=== PATIENT | female | born 1985 | race Two or more races ===

== ENCOUNTER → 2016-12-23 | Outpatient (CLI) | payer BC ==
[2016-12-23 09:47] LABS: Basophils # (auto) 0 uL; Basophils % (auto) 0.7 % (0.0-2.0); Eosinophils # (auto) 0 uL; Eosinophils % (auto) 0.8 % (0.0-7.0); Hematocrit 41.8 % (36.0-46.0); Hemoglobin 13.8 g/dL (12.2-16.2); Lymphocytes # (auto) 1.6 uL; Lymphocytes % (auto) 26.3 % (10.0-50.0); Mean Corpuscular Hemoglobin 29.5 pg (28.0-32.0); Mean Corpuscular Hgb Conc. 33.1 g/dL (32.0-36.0); Mean Corpuscular Volume 89.2 fL (80.0-100.0); Mean Platelet Volume 9.4 fL (7.4-10.4); Monocytes # (auto) 0.4 uL; Monocytes % (auto) 6.5 % (0.0-12.0); Neutrophils # (auto) 3.9 uL; Neutrophils % (auto) 65.7 % (37.0-80.0); Platelet Count (auto) 283 10^3/uL (140-450)
[2016-12-23 10:20] LABS: Urine Bilirubin Negative (Negative); Urine Blood Negative /uL (Negative); Urine Color Yellow (Yellow); Urine Glucose Normal (Normal); Urine Ketone Negative (Negative); Urine Nitrite Negative (Negative); Urine RBC 1 /hpf (0 - 4); Urine Squamous Epithelial Cell FEW /hpf (<5); Urine Urobilinogen Normal (Negative)
[2016-12-23 10:32] LABS: Albumin 3.9 g/dL (3.4-5.0); BUN/Creatinine Ratio 13.3; Bilirubin, Total 0.6 mg/dL (0.2-1.0); Calcium 8.9 mg/dL (8.5-10.1); Potassium 3.8 mmol/L (3.5-5.1); Total Protein 8.2 g/dL (6.4-8.2)
== END | disposition home or self-care (01) ==
LOC: LAB 08:27
PROVIDERS: ATTEND Internal Medicine
DX: I10 Essential (primary) hypertension (principal); Z00.00 Encounter for general adult medical examination without abnormal findings
CPT/HCPCS: 36415; 80053; 81001; 81025; 83036; 85025

== ENCOUNTER 2017-07-19 11:56 | Inpatient (IN) | payer BC ==
[~2017-07-19] VITALS: Ht 160 cm; Wt 80.9 kg
[2017-07-19] MEDS ORDERED: HYDROmorphone HCL 2 MG/ML VL IV ONE (12:45)
[2017-07-19] MEDS ORDERED: ONDANSETRON HCL 4 MG/2 ML VIAL IV ONE (12:45)
[2017-07-19] MEDS ORDERED: SODIUM CHLORIDE 0.9% 1,000 ML IVB ONE (12:45)
[2017-07-19] MEDS ORDERED: PANTOPRAZOLE 40 MG/10 ML VIAL IV STA (12:45)
[2017-07-19 13:16] LABS: Basophils # (auto) 0.1 uL; Basophils % (auto) 0.6 % (0.0-2.0); Eosinophils # (auto) 0 uL; Eosinophils % (auto) 0.5 % (0.0-7.0); Hematocrit 41.7 % (36.0-46.0); Lymphocytes # (auto) 1.6 uL; Lymphocytes % (auto) 19.2 % (10.0-50.0); Mean Corpuscular Hemoglobin 29.3 pg (28.0-32.0); Mean Corpuscular Hgb Conc. 33.5 g/dL (32.0-36.0); Mean Corpuscular Volume 87.6 fL (80.0-100.0); Mean Platelet Volume 8.4 fL (6.9-10.8); Monocytes # (auto) 0.6 uL; Monocytes % (auto) 6.6 % (0.0-12.0); Neutrophils # (auto) 6.2 uL; Neutrophils % (auto) 73.1 % (37.0-80.0); Nucleated Red Blood Cells % 0.2 %; Platelet Count (auto) 247 10^3/uL (140-450); Red Cell Distribution Width 14.6 % (11.8-14.3); White Blood Cell 8.5 10^3/uL (4.4-10.8)
[2017-07-19 13:25] LABS: Albumin 3.9 g/dL (3.4-5.0); BUN/Creatinine Ratio 15.4; Calcium 9.2 mg/dL (8.5-10.1); Potassium 3.5 mmol/L (3.5-5.1)
[2017-07-19 13:28] LABS: Bilirubin, Total 0.5 mg/dL (0.2-1.0); Total Protein 8.3 g/dL (6.4-8.2)
[2017-07-19] MEDS ORDERED: TEMAZEPAM 15 MG CAP PO PRN (15:15)
[2017-07-19] MEDS ORDERED: DOCUSATE SOD 100 MG CAP PO PRN (15:15)
[2017-07-19] MEDS ORDERED: ACETAMINOPHEN 325 MG TAB PO PRN (15:15)
[2017-07-19 15:30] LABS: INR 0.98 (0.9-1.15); Prothrombin Time 10.7 sec (9.37-12.3)
[2017-07-19] MEDS ORDERED: cefTRIAXone 1GM/50ML D5W 50 ML IV ONE (15:30)
[2017-07-19] MEDS: FAMOTIDINE 20 MG TAB PO SCH ×2 (15:41→21:05)
[2017-07-19] MEDS: SODIUM CHLORIDE 0.9% 1,000 ML IV SCH ×2 (15:41→23:43)
[2017-07-19] MEDS ORDERED: metroNIDAZOLE 500MG/100ML 100 ML IV ONE (16:00)
[2017-07-19] MEDS: KETOROLAC TROMETH 30 MG/ML 1ML VIAL IV PRN (19:17)
[2017-07-19] MEDS: ONDANSETRON HCL 4 MG/2 ML VIAL IV PRN (21:05)
[2017-07-19] MEDS: ASCORBIC ACID 500 MG TAB PO SCH (21:05)
[2017-07-19] MEDS: HYDROcodone-ACET 5/325MG TAB PO PRN (21:06)
[2017-07-19 22:00] VITALS: BP 97/50
[2017-07-19] MEDS: metroNIDAZOLE 500MG/100ML 100 ML IV SCH (23:47)
[2017-07-20 05:00] VITALS: BP 94/63
[2017-07-20] MEDS: ONDANSETRON HCL 4 MG/2 ML VIAL IV PRN ×2 (05:17→18:09)
[2017-07-20 05:29] LABS: Urine Bilirubin Negative (Negative); Urine Blood Negative /uL (Negative); Urine Color Yellow (Yellow); Urine Glucose Normal (Normal); Urine Ketone 3+ (Negative); Urine Mucus FEW (None Seen); Urine Nitrite Negative (Negative); Urine RBC <1 /hpf (0 - 4); Urine Squamous Epithelial Cell FEW /hpf (<5); Urine Urobilinogen Normal (Negative)
[2017-07-20] MEDS: KETOROLAC TROMETH 30 MG/ML 1ML VIAL IV PRN ×3 (05:58→19:02)
[2017-07-20 06:08] LABS: Basophils # (auto) 0.1 uL; Basophils % (auto) 0.9 % (0.0-2.0); Eosinophils # (auto) 0.1 uL; Eosinophils % (auto) 1.3 % (0.0-7.0); Hematocrit 36.6 % (36.0-46.0); Hemoglobin 12.2 g/dL (12.2-16.2); Lymphocytes # (auto) 2.1 uL; Lymphocytes % (auto) 35.7 % (10.0-50.0); Mean Corpuscular Hemoglobin 29.8 pg (28.0-32.0); Mean Corpuscular Hgb Conc. 33.4 g/dL (32.0-36.0); Mean Corpuscular Volume 89.2 fL (80.0-100.0); Monocytes # (auto) 0.6 uL; Monocytes % (auto) 9.8 % (0.0-12.0); Neutrophils % (auto) 52.3 % (37.0-80.0); Nucleated Red Blood Cells % 0.1 %; Platelet Count (auto) 198 10^3/uL (140-450); Red Cell Distribution Width 14.4 % (11.8-14.3); White Blood Cell 5.8 10^3/uL (4.4-10.8)
[2017-07-20 06:29] LABS: Albumin 2.8 g/dL (3.4-5.0); Calcium 7.8 mg/dL (8.5-10.1); Potassium 3.8 mmol/L (3.5-5.1)
[2017-07-20 06:31] LABS: BUN/Creatinine Ratio 17.3; Bilirubin, Total 0.5 mg/dL (0.2-1.0); Total Protein 6.1 g/dL (6.4-8.2)
[2017-07-20 07:59] VITALS: BP 97/50
[2017-07-20] MEDS: SODIUM CHLORIDE 0.9% 1,000 ML IV SCH ×2 (08:32→15:57)
[2017-07-20] MEDS: metroNIDAZOLE 500MG/100ML 100 ML IV SCH ×3 (08:32→23:30)
[2017-07-20] MEDS ORDERED: PROPOFOL 10 MG/ML 20 ML IV ONE (09:34)
[2017-07-20] MEDS ORDERED: KETOROLAC TROMETH 60MG/2ML VIAL IM ONE (09:34)
[2017-07-20] MEDS ORDERED: MEPERIDINE HCL (50 MG/ML) 1 ML VIAL ONE (09:34)
[2017-07-20] MEDS ORDERED: MIDAZOLAM HCL 1MG/1ML-2 ML VIAL ONE (09:34)
[2017-07-20] MEDS ORDERED: GLYCOPYRROLATE 0.2 MG/ML 1ML VIAL ONE (09:34)
[2017-07-20] MEDS ORDERED: NEOSTIGMINE 1 MG/ML INJ (10mg/10ML VIAL) ONE (09:34)
[2017-07-20] MEDS ORDERED: ONDANSETRON HCL 4 MG/2 ML VIAL ONE (09:34)
[2017-07-20] MEDS ORDERED: fentaNYL CITRATE 100 MCG/2 ML VL ONE (09:34)
[2017-07-20] MEDS ORDERED: ROCURONIUM 10MG/ML 10ML VIAL IV ONE (09:34)
[2017-07-20] MEDS: ZINC SULFATE 220 MG CAP PO SCH (09:55)
[2017-07-20] MEDS: cefTRIAXone 1GM/50ML D5W 50 ML IV SCH (09:55)
[2017-07-20] MEDS: FAMOTIDINE 20 MG TAB PO SCH ×2 (09:56→21:30)
[2017-07-20] MEDS: ASCORBIC ACID 500 MG TAB PO SCH ×2 (09:56→21:29)
[2017-07-20] MEDS: MULTIPLE VITAMIN TAB PO SCH (09:56)
[2017-07-20] MEDS ORDERED: METOCLOPRAMIDE HCL 5MG/ml INJ 2ml VIAL IV ONE (10:15)
[2017-07-20] MEDS: HYDROmorphone HCL 2 MG/ML VL IV PRN ×4 (11:40→12:10)
[2017-07-20 15:39] LABS: Calcium 7.9 mg/dL (8.5-10.1); Potassium 3.9 mmol/L (3.5-5.1)
[2017-07-20] MEDS: HYDROcodone-ACET 5/325MG TAB PO PRN ×2 (15:57→20:12)
[2017-07-20 17:04] VITALS: BP 101/53
[2017-07-20 20:00] VITALS: BP 103/48
[2017-07-20] MEDS ORDERED: MEPERIDINE HCL (25 MG/ML) 1ML VIAL IV ONE (20:45)
[2017-07-20 22:00] VITALS: BP 103/48
[2017-07-21] MEDS: HYDROcodone-ACET 5/325MG TAB PO PRN ×5 (00:24→21:52)
[2017-07-21] MEDS: SODIUM CHLORIDE 0.9% 1,000 ML IV SCH ×4 (00:29→21:57)
[2017-07-21] MEDS: KETOROLAC TROMETH 30 MG/ML 1ML VIAL IV PRN (02:10)
[2017-07-21 05:00] VITALS: BP 96/50
[2017-07-21 06:30] LABS: Basophils # (auto) 0 uL; Basophils % (auto) 0.7 % (0.0-2.0); Eosinophils # (auto) 0 uL; Eosinophils % (auto) 0.5 % (0.0-7.0); Hematocrit 28.8 % (36.0-46.0); Hemoglobin 9.9 g/dL (12.2-16.2); Lymphocytes # (auto) 1.5 uL; Lymphocytes % (auto) 22.5 % (10.0-50.0); Mean Corpuscular Hemoglobin 30.5 pg (28.0-32.0); Mean Corpuscular Hgb Conc. 34.3 g/dL (32.0-36.0); Mean Corpuscular Volume 88.9 fL (80.0-100.0); Mean Platelet Volume 8.9 fL (6.9-10.8); Monocytes # (auto) 0.6 uL; Monocytes % (auto) 8.6 % (0.0-12.0); Neutrophils # (auto) 4.6 uL; Neutrophils % (auto) 67.7 % (37.0-80.0); Nucleated Red Blood Cells % 0.1 %; Platelet Count (auto) 174 10^3/uL (140-450); White Blood Cell 6.7 10^3/uL (4.4-10.8)
[2017-07-21] MEDS: ONDANSETRON HCL 4 MG/2 ML VIAL IV PRN ×2 (08:20→21:57)
[2017-07-21] MEDS: metroNIDAZOLE 500MG/100ML 100 ML IV SCH (08:25)
[2017-07-21 08:47] VITALS: BP 101/54
[2017-07-21] MEDS: cefTRIAXone 1GM/50ML D5W 50 ML IV SCH (10:16)
[2017-07-21] MEDS: MULTIPLE VITAMIN TAB PO SCH (10:17)
[2017-07-21] MEDS: ZINC SULFATE 220 MG CAP PO SCH (10:17)
[2017-07-21] MEDS: FAMOTIDINE 20 MG TAB PO SCH ×2 (10:17→21:53)
[2017-07-21] MEDS: ASCORBIC ACID 500 MG TAB PO SCH ×2 (10:17→21:52)
[2017-07-21 13:22] VITALS: BP 111/62
[2017-07-21 17:22] VITALS: BP 107/55
[2017-07-21 22:00] VITALS: BP 110/53
[2017-07-22] MEDS: HYDROcodone-ACET 5/325MG TAB PO PRN ×3 (04:23→19:34)
[2017-07-22 05:00] VITALS: BP 111/60
[2017-07-22 06:15] LABS: Hematocrit 31.1 % (36.0-46.0); Hemoglobin 10.6 g/dL (12.2-16.2)
[2017-07-22 08:00] VITALS: BP 108/65
[2017-07-22 09:00] VITALS: BP 108/65
[2017-07-22] MEDS ORDERED: DOCU100C8 PO (09:56)
[2017-07-22] MEDS: MULTIPLE VITAMIN TAB PO SCH (10:00)
[2017-07-22] MEDS: FAMOTIDINE 20 MG TAB PO SCH (10:46)
[2017-07-22] MEDS: ASCORBIC ACID 500 MG TAB PO SCH (10:46)
[2017-07-22] MEDS: ZINC SULFATE 220 MG CAP PO SCH (10:46)
[2017-07-22 13:00] VITALS: BP 96/51
[2017-07-22] MEDS ORDERED: HYDR-4683 PO (14:16)
[2017-07-22] MEDS ORDERED: ONDA4TAB5 PO (14:16)
[2017-07-22 17:00] VITALS: BP 105/62
[2017-07-22 18:04] VITALS: BP 105/62
== END 2017-07-22 19:45 | disposition home or self-care (01) | DRG 872 ==
LOC: ER 11:56 → OVERFLOW 11:57 → EAST 19:45
PROVIDERS: ADMIT Internal Medicine; ATTEND Internal Medicine
DX: A41.9 Sepsis, unspecified organism (principal); K80.00 Calculus of gallbladder with acute cholecystitis without obstruction; K76.0 Fatty (change of) liver, not elsewhere classified; D64.9 Anemia, unspecified; K27.9 Peptic ulcer, site unspecified, unspecified as acute or chronic, without hemorrhage or perforation; Z91.040 Latex allergy status
CPT/HCPCS: 36415; 80048; 80053; 81001; 81025; 82150; 82247; 83605; 83690; 84702; 85014; 85018; 85025; 85610; 86850; 86900; 86901; 87040; 96361; 96365; 96368; 96375; C9113; J0696; J1885; J2250; J2405; J2704; J3490

== ENCOUNTER → 2017-07-28 | Outpatient (CLI) | payer BC ==
[~2017-07-28] MED LIST: DOCU100C8 PO; GABA300C10 PO; HYDR-4683 PO; ONDA4TAB5 PO
[2017-07-28 08:49] LABS: Basophils # (auto) 0.1 uL; Eosinophils # (auto) 0.1 uL; Eosinophils % (auto) 0.7 % (0.0-7.0); Hematocrit 37.3 % (36.0-46.0); Hemoglobin 12.7 g/dL (12.2-16.2); Lymphocytes # (auto) 1.3 uL; Lymphocytes % (auto) 16.2 % (10.0-50.0); Mean Corpuscular Hemoglobin 29.7 pg (28.0-32.0); Mean Corpuscular Hgb Conc. 33.9 g/dL (32.0-36.0); Mean Corpuscular Volume 87.6 fL (80.0-100.0); Monocytes # (auto) 0.5 uL; Monocytes % (auto) 5.7 % (0.0-12.0); Neutrophils # (auto) 6.1 uL; Neutrophils % (auto) 76.4 % (37.0-80.0); Platelet Count (auto) 319 10^3/uL (140-450); Red Blood Cells 4.26 10^6/uL (4.0-5.20); Red Cell Distribution Width 14.9 % (11.8-14.3)
== END | disposition home or self-care (01) ==
LOC: LAB 08:23
PROVIDERS: ATTEND Internal Medicine
DX: D64.9 Anemia, unspecified (principal)
CPT/HCPCS: 36415; 85025

== ENCOUNTER 2017-08-24 11:30 | Emergency (ER) | payer BC ==
[~2017-08-24] VITALS: Ht 160 cm; Wt 78.9 kg
[~2017-08-24 11:30] MED LIST changes: -GABA300C10 PO
[2017-08-24] MEDS ORDERED: SODIUM CHLORIDE 0.9% 1,000 ML IV ONE (11:59)
[2017-08-24 12:19] LABS: Urine RBC None Seen /hpf (0 - 4)
[2017-08-24] MEDS ORDERED: KETOROLAC TROMETH 30 MG/ML 1ML VIAL IV ONE (12:30)
[2017-08-24 12:44] LABS: Urine Bilirubin Negative (Negative); Urine Blood Negative /uL (Negative); Urine Glucose Normal (Normal); Urine Ketone Negative (Negative); Urine Nitrite Negative (Negative); Urine Squamous Epithelial Cell FEW /hpf (<5); Urine Urobilinogen Normal (Negative); Urine pH 6.5 (5.0-8.0)
[2017-08-24 12:45] LABS: Urine Color Straw (Yellow)
[2017-08-24 13:11] LABS: Basophils # (auto) 0.1 uL; Basophils % (auto) 0.7 % (0.0-2.0); Eosinophils # (auto) 0 uL; Eosinophils % (auto) 0.4 % (0.0-7.0); Hematocrit 40.1 % (36.0-46.0); Hemoglobin 13.2 g/dL (12.2-16.2); Lymphocytes # (auto) 1.5 uL; Lymphocytes % (auto) 21.1 % (10.0-50.0); Mean Corpuscular Hemoglobin 29.1 pg (28.0-32.0); Mean Corpuscular Volume 88.1 fL (80.0-100.0); Mean Platelet Volume 8.8 fL (6.9-10.8); Monocytes # (auto) 0.4 uL; Monocytes % (auto) 5.9 % (0.0-12.0); Neutrophils # (auto) 5.1 uL; Neutrophils % (auto) 71.9 % (37.0-80.0); Platelet Count (auto) 245 10^3/uL (140-450); Red Cell Distribution Width 14.8 % (11.8-14.3); White Blood Cell 7.1 10^3/uL (4.4-10.8)
[2017-08-24 13:26] LABS: BUN/Creatinine Ratio 11.9; Potassium 3.7 mmol/L (3.5-5.1)
[2017-08-24 13:28] LABS: Bilirubin, Total 0.4 mg/dL (0.2-1.0); Total Protein 8.6 g/dL (6.4-8.2)
[2017-08-24 14:15] VITALS: BP 128/80
== END 2017-08-24 14:48 | disposition home or self-care (01) ==
LOC: ER 11:30
DX: M54.9 Dorsalgia, unspecified (principal); M79.1 Myalgia; R10.9 Unspecified abdominal pain; Z90.49 Acquired absence of other specified parts of digestive tract; Z91.040 Latex allergy status
CPT/HCPCS: 36415; 74176; 80053; 81001; 82150; 83690; 85025; 96361; 96374; 99285; J1885; J7030

== ENCOUNTER 2017-09-01 12:16 | Inpatient (IN) | payer BC ==
[~2017-09-01] VITALS: Ht 160 cm; Wt 83.9 kg
[2017-09-01] MEDS ORDERED: D5W/SOD CHL 0.45%/KCL 20MEQ 1,000 ML IV SCH (13:15)
[2017-09-01] MEDS ORDERED: PANTOPRAZOLE 40 MG/10 ML VIAL IV ONE (13:30)
[2017-09-01] MEDS ORDERED: MORPHINE SULFATE 4 MG/ML SYR/VIAL IV PRN (13:30)
[2017-09-01] MEDS ORDERED: ONDANSETRON HCL 4 MG/2 ML VIAL IV PRN (13:30)
[2017-09-01] MEDS ORDERED: HYDROmorphone HCL 2 MG/ML VL IV PRN (13:30)
[2017-09-01] MEDS ORDERED: LORazepam 2MG/ML-1ML VIAL IV ONE (13:30)
[2017-09-01 13:45] LABS: Basophils # (auto) 0 uL; Eosinophils # (auto) 0 uL; Eosinophils % (auto) 0.1 % (0.0-7.0); Hematocrit 40.3 % (36.0-46.0); Hemoglobin 13.6 g/dL (12.2-16.2); Lymphocytes # (auto) 0.7 uL; Mean Corpuscular Hemoglobin 29.8 pg (28.0-32.0); Mean Corpuscular Hgb Conc. 33.8 g/dL (32.0-36.0); Monocytes # (auto) 0.7 uL; Neutrophils # (auto) 3.1 uL; Neutrophils % (auto) 67.9 % (37.0-80.0); Nucleated Red Blood Cells % 0.1 %; Platelet Count (auto) 230 10^3/uL (140-450); Red Blood Cells 4.58 10^6/uL (4.0-5.20); Red Cell Distribution Width 14.9 % (11.8-14.3); White Blood Cell 4.6 10^3/uL (4.4-10.8)
[2017-09-01] MEDS: SODIUM CHLORIDE 0.9% 1,000 ML IV SCH (13:47)
[2017-09-01 14:01] LABS: BUN/Creatinine Ratio 13.6; Bilirubin, Total 0.4 mg/dL (0.2-1.0); Calcium 8.8 mg/dL (8.5-10.1); Potassium 3.7 mmol/L (3.5-5.1); Total Protein 8.5 g/dL (6.4-8.2)
[2017-09-01 14:11] LABS: Urine Bacteria FEW /hpf (None Seen); Urine Blood Negative /uL (Negative); Urine Mucus FEW (None Seen); Urine WBC 3 /hpf (0 - 5)
[2017-09-01 14:22] LABS: INR 0.98 (0.9-1.15); Partial Thromboplastin Time 32.9 sec (22.64-33.71); Prothrombin Time 10.7 sec (9.37-12.3)
[2017-09-01] MEDS: HYDROcodone-ACET 5/325MG TAB PO PRN (15:59)
[2017-09-01 16:52] VITALS: BP 106/57
[2017-09-01 22:00] VITALS: BP 102/51
[2017-09-02] MEDS: HYDROcodone-ACET 5/325MG TAB PO PRN ×2 (00:47→06:49)
[2017-09-02] MEDS: SODIUM CHLORIDE 0.9% 1,000 ML IV SCH ×2 (03:32→16:17)
[2017-09-02 05:00] VITALS: BP 93/52
[2017-09-02 09:00] VITALS: BP 99/59
[2017-09-02] MEDS: PANTOPRAZOLE 40 MG/10 ML VIAL IV SCH (09:45)
[2017-09-02] MEDS ORDERED: LORazepam 2MG/ML-1ML VIAL IV ONE (11:45)
[2017-09-02] MEDS ORDERED: GABAPENTIN 100 MG CAP PO ONE (11:45)
[2017-09-02] MEDS: KETOROLAC TROMETH 30 MG/ML 1ML VIAL IV PRN ×2 (12:16→22:28)
[2017-09-02 13:00] VITALS: BP 94/54
[2017-09-02 17:00] VITALS: BP 99/59
[2017-09-02 22:00] VITALS: BP 97/49
[2017-09-02] MEDS: GABAPENTIN 100 MG CAP PO SCH (22:27)
[2017-09-03 05:00] VITALS: BP 93/43
[2017-09-03] MEDS: SODIUM CHLORIDE 0.9% 1,000 ML IV SCH ×2 (05:47→17:52)
[2017-09-03] MEDS: KETOROLAC TROMETH 30 MG/ML 1ML VIAL IV PRN (05:47)
[2017-09-03 08:00] VITALS: BP 102/68
[2017-09-03 09:00] VITALS: BP 102/68
[2017-09-03] MEDS: PANTOPRAZOLE 40 MG/10 ML VIAL IV SCH (10:23)
[2017-09-03] MEDS: GABAPENTIN 100 MG CAP PO SCH (10:23)
[2017-09-03] MEDS: HYDROcodone-ACET 5/325MG TAB PO PRN ×2 (10:38→20:36)
[2017-09-03 11:51] LABS: Urine Bacteria NONE SEEN /hpf (None Seen); Urine Blood Negative /uL (Negative); Urine Specific Gravity 1.003 (1.001-1.035); Urine WBC <1 /hpf (0 - 5)
[2017-09-03 11:57] VITALS: BP 113/62
[2017-09-03 17:24] VITALS: BP 90/65
[2017-09-03] MEDS: GABAPENTIN 300 MG CAP PO SCH (20:37)
[2017-09-03 22:00] VITALS: BP 100/55
[2017-09-04 05:00] VITALS: BP 97/49
[2017-09-04] MEDS: GABAPENTIN 300 MG CAP PO SCH ×3 (06:15→21:57)
[2017-09-04] MEDS: HYDROcodone-ACET 5/325MG TAB PO PRN ×2 (06:17→18:10)
[2017-09-04] MEDS: SODIUM CHLORIDE 0.9% 1,000 ML IV SCH ×2 (08:49→21:57)
[2017-09-04 09:35] VITALS: BP 116/56
[2017-09-04] MEDS: PANTOPRAZOLE 40 MG TAB PO SCH (10:39)
[2017-09-04 13:00] VITALS: BP 95/45
[2017-09-04 16:59] VITALS: BP 101/58
[2017-09-04 21:45] VITALS: BP 88/50
[2017-09-05 04:39] VITALS: BP 105/53
[2017-09-05] MEDS: GABAPENTIN 300 MG CAP PO SCH ×2 (05:40→14:11)
[2017-09-05 08:17] VITALS: BP 104/60
[2017-09-05] MEDS: SODIUM CHLORIDE 0.9% 1,000 ML IV SCH (10:02)
[2017-09-05] MEDS: PANTOPRAZOLE 40 MG TAB PO SCH (10:02)
[2017-09-05] MEDS ORDERED: GABA300C10 PO (11:44)
[2017-09-05] MEDS: HYDROcodone-ACET 5/325MG TAB PO PRN ×2 (12:22→16:38)
[2017-09-05 13:11] VITALS: BP 104/61
[2017-09-05 14:20] VITALS: BP 104/61
== END 2017-09-05 17:00 | disposition home or self-care (01) | DRG 552 ==
LOC: EAST 12:25
PROVIDERS: ADMIT Surgery; ATTEND Internal Medicine
DX: M54.16 Radiculopathy, lumbar region (principal); D68.59 Other primary thrombophilia; N39.0 Urinary tract infection, site not specified; E66.9 Obesity, unspecified; M54.18 Radiculopathy, sacral and sacrococcygeal region; Z68.32 Body mass index [BMI] 32.0-32.9, adult; Z79.899 Other long term (current) drug therapy; Z82.3 Family history of stroke; Z82.49 Family history of ischemic heart disease and other diseases of the circulatory system; Z83.3 Family history of diabetes mellitus; Z87.11 Personal history of peptic ulcer disease; Z90.49 Acquired absence of other specified parts of digestive tract; Z80.8 Family history of malignant neoplasm of other organs or systems; Z91.040 Latex allergy status
CPT/HCPCS: 36415; 71020; 72146; 72148; 74181; 80053; 81001; 81025; 83690; 84702; 85025; 85610; 85730; 87086; C9113; J1885; J2405

== ENCOUNTER → 2017-10-08 | Outpatient (CLI) | payer BC ==
[~2017-10-08] MED LIST changes: +GABA300C10 PO
[2017-10-08 16:43] LABS: Basophils # (auto) 0.1 uL; Basophils % (auto) 0.7 % (0.0-2.0); Eosinophils # (auto) 0.1 uL; Hematocrit 38.1 % (36.0-46.0); Hemoglobin 12.9 g/dL (12.2-16.2); Lymphocytes # (auto) 1.7 uL; Lymphocytes % (auto) 23.4 % (10.0-50.0); Mean Corpuscular Hgb Conc. 33.8 g/dL (32.0-36.0); Mean Corpuscular Volume 88.9 fL (80.0-100.0); Monocytes # (auto) 0.6 uL; Monocytes % (auto) 8.1 % (0.0-12.0); Neutrophils # (auto) 4.9 uL; Neutrophils % (auto) 66.8 % (37.0-80.0); Nucleated Red Blood Cells % 0.1 %; Platelet Count (auto) 240 10^3/uL (140-450); Red Blood Cells 4.29 10^6/uL (4.0-5.20); Red Cell Distribution Width 14.8 % (11.8-14.3); White Blood Cell 7.4 10^3/uL (4.4-10.8)
[2017-10-09 03:08] LABS: RPR Non Reactive (Non Reactive)
== END | disposition home or self-care (01) ==
LOC: LAB 09:20
PROVIDERS: ATTEND Specialist
DX: Z34.80 Encounter for supervision of other normal pregnancy, unspecified trimester (principal); Z20.2 Contact with and (suspected) exposure to infections with a predominantly sexual mode of transmission; Z3A.00 Weeks of gestation of pregnancy not specified
CPT/HCPCS: 36415; 83036; 84702; 85025; 86592; 86703; 86762; 86850; 86900; 86901; 87086; 87340

== ENCOUNTER → 2017-10-26 | Outpatient (CLI) | payer BC ==
[2017-10-26 14:30] LABS: Alcohol, Urine < 3.0 mg/dL (0-5); Amphetamine Screen, Urine NEGATIVE (NEGATIVE); Barbiturate Scree,Urine NEGATIVE (NEGATIVE); Benzodiazephine Screen, Urine NEGATIVE (NEGATIVE); Cannabinoid Screen, Urine NEGATIVE (NEGATIVE); Cocaine Screen, Urine NEGATIVE (NEGATIVE); Opiate Scree,Urine NEGATIVE (NEGATIVE); Phencyclidine Screen, Urine NEGATIVE (NEGATIVE)
== END | disposition home or self-care (01) ==
LOC: LAB 09:56
PROVIDERS: ATTEND Obstetrics & Gynecology
DX: Z36.9 Encounter for antenatal screening, unspecified (principal); Z31.430 Encounter of female for testing for genetic disease carrier status for procreative management; Z3A.00 Weeks of gestation of pregnancy not specified
CPT/HCPCS: 80307; 81220

== ENCOUNTER → 2017-11-16 | Outpatient (CLI) | payer BC | END | disposition home or self-care (01) | LOC: LAB 08:30 | PROVIDERS: ATTEND Obstetrics & Gynecology | DX: Z36.9 Encounter for antenatal screening, unspecified (principal); Z3A.00 Weeks of gestation of pregnancy not specified | CPT/HCPCS: 82951 ==

== ENCOUNTER 2017-12-11 17:20 | Emergency (ER) | payer BC ==
[~2017-12-11] VITALS: Ht 160 cm; Wt 80.7 kg
[2017-12-11 18:49] VITALS: BP 114/65
== END 2017-12-11 20:23 | disposition home or self-care (01) ==
LOC: ER 17:46
DX: O9A.212 Injury, poisoning and certain other consequences of external causes complicating pregnancy, second trimester (principal); S39.012A Strain of muscle, fascia and tendon of lower back, initial encounter; Z3A.18 18 weeks gestation of pregnancy; Z79.899 Other long term (current) drug therapy; W18.39XA Other fall on same level, initial encounter; Y93.89 Activity, other specified; Y92.89 Other specified places as the place of occurrence of the external cause; Y99.8 Other external cause status
CPT/HCPCS: 76805

== ENCOUNTER → 2018-02-17 | Outpatient (CLI) | payer BC ==
[2018-02-17 09:04] LABS: Basophils # (auto) 0 uL; Basophils % (auto) 0.5 % (0.0-2.0); Eosinophils # (auto) 0.1 uL; Eosinophils % (auto) 0.8 % (0.0-7.0); Hematocrit 34.4 % (36.0-46.0); Hemoglobin 11.7 g/dL (12.2-16.2); Lymphocytes # (auto) 1.4 uL; Lymphocytes % (auto) 16.1 % (10.0-50.0); Mean Corpuscular Hemoglobin 30.2 pg (28.0-32.0); Mean Corpuscular Hgb Conc. 33.9 g/dL (32.0-36.0); Mean Corpuscular Volume 89.1 fL (80.0-100.0); Monocytes # (auto) 0.5 uL; Monocytes % (auto) 5.9 % (0.0-12.0); Neutrophils # (auto) 6.8 uL; Neutrophils % (auto) 76.7 % (37.0-80.0); Platelet Count (auto) 228 10^3/uL (140-450); Red Blood Cells 3.86 10^6/uL (4.0-5.20); Red Cell Distribution Width 13.8 % (11.8-14.3); White Blood Cell 8.9 10^3/uL (4.4-10.8)
== END | disposition home or self-care (01) ==
LOC: LAB 08:47
PROVIDERS: ATTEND Specialist
DX: O99.810 Abnormal glucose complicating pregnancy (principal); Z3A.28 28 weeks gestation of pregnancy
CPT/HCPCS: 36415; 82951; 85025

== ENCOUNTER → 2018-04-11 | Outpatient (CLI) | payer BC ==
[~2018-04-11] MED LIST changes: +PREN-153 OR
[2018-04-11 10:10] LABS: Basophils # (auto) 0 uL; Basophils % (auto) 0.4 % (0.0-2.0); Eosinophils # (auto) 0.1 uL; Eosinophils % (auto) 0.7 % (0.0-7.0); Hematocrit 34.7 % (36.0-46.0); Hemoglobin 11.4 g/dL (12.2-16.2); Lymphocytes # (auto) 1.3 uL; Mean Corpuscular Hemoglobin 27.4 pg (28.0-32.0); Mean Corpuscular Hgb Conc. 32.9 g/dL (32.0-36.0); Mean Corpuscular Volume 83.3 fL (80.0-100.0); Monocytes # (auto) 0.5 uL; Monocytes % (auto) 6.6 % (0.0-12.0); Neutrophils # (auto) 5.8 uL; Neutrophils % (auto) 75.3 % (37.0-80.0); Platelet Count (auto) 245 10^3/uL (140-450); Red Blood Cells 4.17 10^6/uL (4.0-5.20); Red Cell Distribution Width 14.9 % (11.8-14.3); White Blood Cell 7.8 10^3/uL (4.4-10.8)
[2018-04-12 10:47] LABS: RPR Non Reactive (Non Reactive)
== END | disposition home or self-care (01) ==
LOC: LAB 09:29
PROVIDERS: ATTEND Specialist
DX: O23.593 Infection of other part of genital tract in pregnancy, third trimester (principal); Z3A.34 34 weeks gestation of pregnancy
CPT/HCPCS: 36415; 83036; 85025; 86592; 87081

== ENCOUNTER 2018-05-11 18:50 | Observation (INO) | payer BC ==
[~2018-05-11] VITALS: Ht 160 cm; Wt 93.9 kg
[~2018-05-11 18:50] MED LIST changes: -PREN-153 OR
[2018-05-11] MEDS ORDERED: PREN-153 OR (20:34)
== END 2018-05-11 20:25 | disposition home or self-care (01) | DRG 781 ==
LOC: LDRP 18:50
PROVIDERS: ADMIT Specialist; ATTEND Specialist
DX: O62.9 Abnormality of forces of labor, unspecified (principal); O26.893 Other specified pregnancy related conditions, third trimester; N89.8 Other specified noninflammatory disorders of vagina; Z3A.38 38 weeks gestation of pregnancy
CPT/HCPCS: 59025; 76818; 81002; G0378

== ENCOUNTER 2018-05-12 12:05 | Observation (INO) | payer BC ==
[~2018-05-12 12:05] MED LIST changes: +PREN-153 OR
== END 2018-05-12 13:25 | disposition home or self-care (01) | DRG 782 ==
LOC: LDRP 12:05
PROVIDERS: ADMIT Specialist; ATTEND Specialist
DX: O76 Abnormality in fetal heart rate and rhythm complicating labor and delivery (principal); O36.63X0 Maternal care for excessive fetal growth, third trimester, not applicable or unspecified; O62.9 Abnormality of forces of labor, unspecified; O42.913 Preterm premature rupture of membranes, unspecified as to length of time between rupture and onset of labor, third trimester; Z3A.38 38 weeks gestation of pregnancy
CPT/HCPCS: 59025; 81002; G0378

== ENCOUNTER 2018-05-14 09:10 | Observation (INO) | payer BC | END 2018-05-14 10:50 | disposition home or self-care (01) | DRG 781 | LOC: LDRP 09:10 | PROVIDERS: ADMIT Specialist; ATTEND Specialist | DX: O76 Abnormality in fetal heart rate and rhythm complicating labor and delivery (principal); O26.893 Other specified pregnancy related conditions, third trimester; O36.63X0 Maternal care for excessive fetal growth, third trimester, not applicable or unspecified; N89.8 Other specified noninflammatory disorders of vagina; Z3A.38 38 weeks gestation of pregnancy | CPT/HCPCS: 59025; 76818; 81002; G0378 ==

== ENCOUNTER 2018-05-15 07:09 | Inpatient (IN) | payer BC ==
[~2018-05-15] VITALS: Ht 30.5 cm; Wt 0.5 kg
[2018-05-15] VITALS (13 sets, daily range): BP systolic 91–120; BP diastolic 45–67
[2018-05-15] MEDS ORDERED: LACTATED RINGER'S 1,000 ML IV SCH (07:18)
[2018-05-15 08:17] LABS: Basophils # (auto) 0 uL; Basophils % (auto) 0.7 % (0.0-2.0); Eosinophils # (auto) 0 uL; Eosinophils % (auto) 0.6 % (0.0-7.0); Hematocrit 35.7 % (36.0-46.0); Hemoglobin 11.6 g/dL (12.2-16.2); Lymphocytes # (auto) 1.4 uL; Lymphocytes % (auto) 21.3 % (10.0-50.0); Mean Corpuscular Hemoglobin 27.1 pg (28.0-32.0); Mean Corpuscular Hgb Conc. 32.5 g/dL (32.0-36.0); Mean Corpuscular Volume 83.4 fL (80.0-100.0); Monocytes # (auto) 0.6 uL; Monocytes % (auto) 8.4 % (0.0-12.0); Neutrophils # (auto) 4.7 uL; Nucleated Red Blood Cells % 0.2 %; Platelet Count (auto) 203 10^3/uL (140-450); Red Blood Cells 4.28 10^6/uL (4.0-5.20); Red Cell Distribution Width 17.3 % (11.8-14.3); White Blood Cell 6.8 10^3/uL (4.4-10.8)
[2018-05-15 08:21] LABS: Urine Bacteria FEW /hpf (None Seen); Urine Blood Negative /uL (Negative); Urine Mucus FEW (None Seen); Urine WBC 11 /hpf (0 - 5)
[2018-05-15 08:33] LABS: INR 0.87 (0.9-1.15); Partial Thromboplastin Time 28.4 sec (23.78-33.04); Prothrombin Time 9.4 sec (9.27-12.13)
[2018-05-15 08:43] LABS: Albumin 2.6 g/dL (3.4-5.0); BUN/Creatinine Ratio 19.2; Calcium 8.6 mg/dL (8.5-10.1); Potassium 3.8 mmol/L (3.5-5.1)
[2018-05-15 08:52] LABS: Bilirubin, Total 0.2 mg/dL (0.2-1.0); Total Protein 6.8 g/dL (6.4-8.2)
[2018-05-15] MEDS ORDERED: PHENYLEPHRINE HCL 10 MG/ML VL IV ONE (09:07)
[2018-05-15] MEDS ORDERED: TETRACAINE 1% INJ 2 ML VIAL IJ ONE (09:39)
[2018-05-15] MEDS ORDERED: MIDAZOLAM HCL 1MG/1ML-2 ML VIAL ONE ×2 (09:42→11:07)
[2018-05-15] MEDS ORDERED: fentaNYL CITRATE 100 MCG/2 ML VL ONE (09:42)
[2018-05-15] MEDS ORDERED: MORPHINE SULF(PF) 0.5MG/ML 10ML VIAL ONE (09:42)
[2018-05-15] MEDS ORDERED: ceFAZolin 1GM VL ONE (09:43)
[2018-05-15] MEDS ORDERED: MIDAZOLAM HCL 1MG/1ML-2 ML VIAL IV PRN (09:45)
[2018-05-15] MEDS ORDERED: MORPHINE SULFATE 4 MG/ML SYR/VIAL IV PRN (09:45)
[2018-05-15] MEDS ORDERED: HYDROmorphone HCL 2 MG/ML VL IV PRN ×2 (09:45→11:30)
[2018-05-15] MEDS ORDERED: ONDANSETRON HCL 4 MG/2 ML VIAL IV ONE (09:45)
[2018-05-15] MEDS ORDERED: KETOROLAC TROMETH 30 MG/ML 1ML VIAL IV ONE (09:45)
[2018-05-15] MEDS ORDERED: LABETALOL HCL 5 MG/ML 4ML SYRINGE IV PRN (09:45)
[2018-05-15] MEDS ORDERED: ePHEDrine SULFATE 50 MG/ML AMP IV PRN (09:45)
[2018-05-15] MEDS ORDERED: MORPHINE SULFATE 4 MG/ML SYR/VIAL IV ONE (10:00)
[2018-05-15] MEDS ORDERED: OXYTOCIN 10 UNIT/ML 10ML VIAL ONE (10:14)
[2018-05-15] MEDS ORDERED: DEXAMETHASONE SOD PHOS 10MG/1ML VIAL INJ IV PRN (11:30)
[2018-05-15] MEDS ORDERED: ceFAZolin 1GM/50ML 50 ML IV SCH (11:30)
[2018-05-15] MEDS ORDERED: NALBUPHINE HCL 10 MG/1ml INJECTION SUBCUT ONE (11:30)
[2018-05-15] MEDS ORDERED: diphenhdrAMINE HCL 50 MG/1 ML VL IV PRN (11:30)
[2018-05-15] MEDS ORDERED: KETOROLAC TROMETH 30 MG/ML 1ML VIAL IV PRN (11:30)
[2018-05-15] MEDS ORDERED: NALOXONE HCL 0.4 MG/ML VIAL IV PRN (11:30)
[2018-05-15] MEDS ORDERED: ONDANSETRON HCL 4 MG/2 ML VIAL IV PRN (11:30)
[2018-05-15] MEDS: ONDANSETRON HCL 4 MG/2 ML VIAL IV PRN ×2 (15:55→17:43)
[2018-05-15] MEDS: KETOROLAC TROMETH 30 MG/ML 1ML VIAL IV SCH ×2 (15:58→18:00)
[2018-05-15] MEDS: LACTATED RINGER'S 1,000 ML IV SCH (16:55)
[2018-05-15] MEDS: ceFAZolin 1GM/50ML 50 ML IV SCH (18:57)
[2018-05-15] MEDS: MORPHINE SULFATE 4 MG/ML SYR/VIAL IV PRN (22:59)
[2018-05-16] MEDS: LACTATED RINGER'S 1,000 ML IV SCH ×2 (00:23→03:19)
[2018-05-16] MEDS: KETOROLAC TROMETH 30 MG/ML 1ML VIAL IV SCH ×2 (00:23→06:05)
[2018-05-16] MEDS: ceFAZolin 1GM/50ML 50 ML IV SCH ×2 (02:04→10:30)
[2018-05-16 03:06] VITALS: BP 105/60
[2018-05-16] MEDS: MORPHINE SULFATE 4 MG/ML SYR/VIAL IV PRN (04:00)
[2018-05-16] MEDS ORDERED: TETANUS-DIPTH-ACEL PERTUSSIS 0.5ML SYRG IM ONE (04:00)
[2018-05-16 07:15] VITALS: BP 87/53
[2018-05-16 07:57] LABS: Basophils # (auto) 0 uL; Basophils % (auto) 0.2 % (0.0-2.0); Eosinophils # (auto) 0 uL; Eosinophils % (auto) 0.3 % (0.0-7.0); Hematocrit 28.7 % (36.0-46.0); Hemoglobin 9.4 g/dL (12.2-16.2); Lymphocytes # (auto) 0.8 uL; Lymphocytes % (auto) 9.6 % (10.0-50.0); Mean Corpuscular Hemoglobin 27.6 pg (28.0-32.0); Mean Corpuscular Hgb Conc. 32.9 g/dL (32.0-36.0); Mean Corpuscular Volume 83.9 fL (80.0-100.0); Monocytes # (auto) 0.5 uL; Monocytes % (auto) 5.9 % (0.0-12.0); Neutrophils # (auto) 6.6 uL; Platelet Count (auto) 153 10^3/uL (140-450); Red Blood Cells 3.42 10^6/uL (4.0-5.20); Red Cell Distribution Width 17.5 % (11.8-14.3); White Blood Cell 7.9 10^3/uL (4.4-10.8)
[2018-05-16] MEDS ORDERED: SIMETHICONE 80 MG CHEWABLE TABLET PO PRN (09:30)
[2018-05-16] MEDS: DOCUSATE SOD 100 MG CAP PO SCH ×2 (10:30→22:48)
[2018-05-16] MEDS: IBUPROFEN 800 MG TAB PO PRN ×2 (10:31→18:07)
[2018-05-16 11:00] VITALS: BP 109/62
[2018-05-16] MEDS: HYDROcodone-ACET 5/325MG TAB PO PRN ×2 (14:02→20:18)
[2018-05-16 15:00] VITALS: BP 113/65
[2018-05-16 18:40] VITALS: BP 127/54
[2018-05-16 23:00] VITALS: BP 102/64
[2018-05-17] MEDS: HYDROcodone-ACET 5/325MG TAB PO PRN ×5 (01:14→22:04)
[2018-05-17 03:07] LABS: RPR Non Reactive (Non Reactive)
[2018-05-17] MEDS: IBUPROFEN 800 MG TAB PO PRN ×2 (04:51→15:36)
[2018-05-17 05:00] VITALS: BP 103/60
[2018-05-17 07:00] VITALS: BP 100/59
[2018-05-17 11:00] VITALS: BP 92/56
[2018-05-17] MEDS: DOCUSATE SOD 100 MG CAP PO SCH ×2 (12:49→22:04)
[2018-05-17 15:00] VITALS: BP 115/66
[2018-05-17 19:25] VITALS: BP 113/51
[2018-05-17 23:00] VITALS: BP 100/51
[2018-05-18] MEDS: IBUPROFEN 800 MG TAB PO PRN (00:37)
[2018-05-18 03:30] VITALS: BP 108/53
[2018-05-18] MEDS: HYDROcodone-ACET 5/325MG TAB PO PRN ×2 (03:38→09:16)
[2018-05-18 07:00] VITALS: BP 125/77
[2018-05-18] MEDS: DOCUSATE SOD 100 MG CAP PO SCH (09:15)
[2018-05-18 11:20] VITALS: BP 112/67
== END 2018-05-18 13:50 | disposition home or self-care (01) | DRG 765 ==
LOC: LDRP 07:09
PROVIDERS: ADMIT Specialist; ATTEND Specialist
PROC: 10D00Z1 Extraction of Products of Conception, Low, Open Approach (ICD-10-PCS; principal; 2018-05-15 09:55)
DX: O36.63X0 Maternal care for excessive fetal growth, third trimester, not applicable or unspecified (principal); O99.42 Diseases of the circulatory system complicating childbirth; O76 Abnormality in fetal heart rate and rhythm complicating labor and delivery; I49.9 Cardiac arrhythmia, unspecified; O99.344 Other mental disorders complicating childbirth; F32.9 Major depressive disorder, single episode, unspecified; Z3A.39 39 weeks gestation of pregnancy; Z37.0 Single live birth
CPT/HCPCS: 36415; 51702; 59025; 80053; 81001; 85025; 85610; 85730; 86592; 86850; 86900; 86901; 96365; 96366; 96374; 96375; J0690; J1885; J2250; J2405; J2590

== ENCOUNTER 2019-04-25 19:38 | Emergency (ER) | payer BC ==
[~2019-04-25] VITALS: Ht 160 cm; Wt 89.8 kg
[~2019-04-25 19:38] MED LIST changes: -GABA300C10 PO; -HYDR-4683 PO; +HYDR-4833 PO; -ONDA4TAB5 PO
[2019-04-25 20:12] VITALS: BP 123/58
== END 2019-04-26 00:38 | disposition left against medical advice (07) ==
LOC: ER 19:38
DX: T78.40XA Allergy, unspecified, initial encounter (principal); Z53.21 Procedure and treatment not carried out due to patient leaving prior to being seen by health care provider; X58.XXXA Exposure to other specified factors, initial encounter

== ENCOUNTER 2019-05-31 09:51 | Emergency (ER) | payer BC ==
[~2019-05-31] VITALS: Ht 160 cm; Wt 89.8 kg
[2019-05-31 10:46] LABS: Basophils # (auto) 0.1 uL; Eosinophils # (auto) 0 uL; Eosinophils % (auto) 0.4 % (0.0-7.0); Hemoglobin 14.1 g/dL (12.2-16.2); Lymphocytes # (auto) 1.5 uL; Lymphocytes % (auto) 26.1 % (10.0-50.0); Mean Corpuscular Hemoglobin 29.4 pg (28.0-32.0); Mean Corpuscular Hgb Conc. 34.4 g/dL (32.0-36.0); Mean Corpuscular Volume 85.5 fL (80.0-100.0); Monocytes # (auto) 0.3 uL; Monocytes % (auto) 5.2 % (0.0-12.0); Neutrophils % (auto) 67.3 % (37.0-80.0); Platelet Count (auto) 279 10^3/uL (140-450); Red Cell Distribution Width 13.7 % (11.8-14.3); White Blood Cell 5.9 10^3/uL (4.4-10.8)
[2019-05-31 10:51] LABS: Urine Bacteria NONE SEEN /hpf (None Seen); Urine Blood 2+ /uL (Negative); Urine Mucus FEW (None Seen); Urine Specific Gravity 1.016 (1.001-1.035); Urine WBC 1 /hpf (0 - 5)
[2019-05-31 11:09] LABS: Chloride 108 mmol/L (98-107); Potassium 3.4 mmol/L (3.5-5.1); Sodium 139 mmol/L (136-145)
[2019-05-31 11:18] LABS: Alanine Aminotransferase 21 U/L (13-56); Albumin 3.9 g/dL (3.4-5.0); Alkaline Phosphatase 123 U/L (45-117); Anion Gap 6 (5-15); Aspartate Aminotransferase 16 U/L (15-37); BUN/Creatinine Ratio 9.7; Bilirubin, Total 0.5 mg/dL (0.2-1.0); Blood Urea Nitrogen 9 mg/dL (7-18); Calcium 8.9 mg/dL (8.5-10.1); Carbon Dioxide 25 mmol/L (21-32); GFR African American 90 mL/min; GFR Non-African American 74 mL/min; Glucose 97 mg/dL (74-106); Total Protein 8.3 g/dL (6.4-8.2)
[2019-05-31 12:06] VITALS: BP 106/67
[2019-05-31] MEDS ORDERED: diphenhdrAMINE HCL 50 MG/1 ML VL IM ONE (12:45)
== END 2019-05-31 13:15 | disposition home or self-care (01) ==
LOC: ER 09:52
DX: R07.89 Other chest pain (principal); N39.0 Urinary tract infection, site not specified; Z91.040 Latex allergy status
CPT/HCPCS: 36415; 71046; 80053; 81001; 84443; 84484; 85025; 93005; 96372; 99284; J1200

== ENCOUNTER → 2019-06-20 | Outpatient (CLI) | payer BC ==
[2019-06-20 14:12] LABS: Basophils # (auto) 0.1 uL; Eosinophils # (auto) 0.1 uL; Eosinophils % (auto) 0.9 % (0.0-7.0); Hematocrit 41.5 % (36.0-46.0); Hemoglobin 13.6 g/dL (12.2-16.2); Lymphocytes # (auto) 1.6 uL; Lymphocytes % (auto) 23.5 % (10.0-50.0); Mean Corpuscular Hgb Conc. 32.8 g/dL (32.0-36.0); Mean Corpuscular Volume 88.3 fL (80.0-100.0); Monocytes # (auto) 0.5 uL; Neutrophils # (auto) 4.7 uL; Neutrophils % (auto) 67.6 % (37.0-80.0); Platelet Count (auto) 254 10^3/uL (140-450); Red Cell Distribution Width 14.4 % (11.8-14.3)
[2019-06-20 14:22] LABS: Urine Bacteria NONE SEEN /hpf (None Seen); Urine Blood Negative /uL (Negative); Urine Mucus FEW (None Seen); Urine Specific Gravity 1.027 (1.001-1.035); Urine WBC 4 /hpf (0 - 5)
[2019-06-20 14:46] LABS: Albumin 3.7 g/dL (3.4-5.0); Calcium 8.9 mg/dL (8.5-10.1); Potassium 3.5 mmol/L (3.5-5.1)
[2019-06-20 14:50] LABS: BUN/Creatinine Ratio 11.8; Bilirubin, Total 0.4 mg/dL (0.2-1.0); Total Protein 8.1 g/dL (6.4-8.2)
== END | disposition home or self-care (01) ==
LOC: LAB 14:00
PROVIDERS: ATTEND Internal Medicine
DX: I10 Essential (primary) hypertension (principal)
CPT/HCPCS: 36415; 80053; 80061; 81001; 83036; 84439; 84443; 84484; 85025

== ENCOUNTER → 2019-07-07 | Outpatient (CLI) | payer BC | END | disposition home or self-care (01) | LOC: XYW 08:30 | PROVIDERS: ATTEND Internal Medicine | DX: R07.89 Other chest pain (principal); Z91.040 Latex allergy status; Z82.3 Family history of stroke; Z83.3 Family history of diabetes mellitus; Z82.49 Family history of ischemic heart disease and other diseases of the circulatory system | CPT/HCPCS: 93306 ==

== ENCOUNTER → 2019-09-11 | Day surgery (SDC) | payer BC ==
[2019-09-08 14:01] LABS: Basophils # (auto) 0.1 uL; Eosinophils # (auto) 0.1 uL; Eosinophils % (auto) 0.8 % (0.0-7.0); Hematocrit 41.1 % (36.0-46.0); Hemoglobin 13.9 g/dL (12.2-16.2); Lymphocytes # (auto) 1.9 uL; Lymphocytes % (auto) 25.4 % (10.0-50.0); Mean Corpuscular Hgb Conc. 33.9 g/dL (32.0-36.0); Mean Corpuscular Volume 88.5 fL (80.0-100.0); Monocytes # (auto) 0.5 uL; Monocytes % (auto) 6.6 % (0.0-12.0); Neutrophils # (auto) 4.9 uL; Neutrophils % (auto) 66.2 % (37.0-80.0); Platelet Count (auto) 265 10^3/uL (140-450); Red Blood Cells 4.64 10^6/uL (4.0-5.20); Red Cell Distribution Width 14.1 % (11.8-14.3); White Blood Cell 7.5 10^3/uL (4.4-10.8)
[2019-09-08 14:17] LABS: Urine Bacteria NONE SEEN /hpf (None Seen); Urine Blood 1+ /uL (Negative); Urine Mucus FEW (None Seen); Urine Specific Gravity 1.029 (1.001-1.035); Urine WBC 1 /hpf (0 - 5)
[2019-09-08 14:19] LABS: INR 0.97 (0.9-1.15); Partial Thromboplastin Time 29.3 sec (23.64-32.05)
[2019-09-08 14:31] LABS: Albumin 3.8 g/dL (3.4-5.0); Potassium 3.4 mmol/L (3.5-5.1)
[2019-09-08 14:34] LABS: BUN/Creatinine Ratio 17.1; Bilirubin, Total 0.4 mg/dL (0.2-1.0); Total Protein 8.2 g/dL (6.4-8.2)
[~2019-09-11] VITALS: Ht 160 cm; Wt 90.7 kg
[~2019-09-11] MED LIST changes: +BUPIVACAINE 0.25% INJ 50ML VIAL ONE; -DOCU100C8 PO; +DexAMETHasone SOD PHOS 10MG/1ML VIAL INJ ONE; -HYDR-4833 PO; +HYDROmorphone HCL 2 MG/ML VL IV PRN; +KETOROLAC TROMETH 30 MG/ML 1ML VIAL IV ONE; +LABETALOL HCL 5 MG/ML 4ML SYRINGE IV PRN; +LIDOCAINE 1% HCL (LOCAL ANESTH.) INJ 20ML MDV ONE; +MEPERIDINE HCL (25 MG/ML) 1ML VIAL ONE; +MIDAZOLAM HCL 1MG/1ML-2 ML VIAL IV PRN; +MIDAZOLAM HCL 1MG/1ML-2 ML VIAL ONE; +MORPHINE SULFATE 4 MG/ML SYR/VIAL IV PRN; +ONDANSETRON HCL 4 MG/2 ML VIAL IV PRN; -PREN-153 OR; +PROPOFOL 10 MG/ML 20 ML IV ONE; +ceFAZolin 1GM/50ML 50 ML IV ONE; +ePHEDrine SULFATE 50 MG/ML AMP IV PRN; +fentaNYL CITRATE 100 MCG/2 ML VL ONE
[2019-09-11 08:36] VITALS: BP 104/55
== END | disposition home or self-care (01) ==
LOC: SUR 06:27
PROVIDERS: ATTEND Orthopaedic Surgery Adult Reconstructive Orthopaedic Surgery
DX: M67.432 Ganglion, left wrist (principal); Z91.040 Latex allergy status; Z98.890 Other specified postprocedural states; Z98.891 History of uterine scar from previous surgery; Z90.710 Acquired absence of both cervix and uterus
CPT/HCPCS: 25111; 36415; 80053; 81001; 84702; 85025; 85610; 85730; 88304; J0690; J1100; J2001; J2175; J2250; J2704; J3010; J3490

== ENCOUNTER → 2020-05-10 | Outpatient (CLI) | payer BC | END | disposition home or self-care (01) | LOC: LAB 15:39 | PROVIDERS: ATTEND Internal Medicine | DX: C65.9 Malignant neoplasm of unspecified renal pelvis (principal) | CPT/HCPCS: 36415; 84439; 84443 ==

== ENCOUNTER 2021-10-19 18:41 | Emergency (ER) | payer BC, OTHER ==
[~2021-10-19] VITALS: Ht 157.5 cm; Wt 81.6 kg
[2021-10-19] MEDS ORDERED: METHOCARBAMOL 500 MG TAB PO ONE (20:00)
[2021-10-19] MEDS ORDERED: KETOROLAC TROMETH 60MG/2ML VIAL IM ONE (20:15)
[2021-10-19 22:38] VITALS: BP 111/50
== END 2021-10-19 22:39 | disposition home or self-care (01) ==
LOC: ER 18:44
DX: S39.012A Strain of muscle, fascia and tendon of lower back, initial encounter (principal); Z90.49 Acquired absence of other specified parts of digestive tract; V43.52XA Car driver injured in collision with other type car in traffic accident, initial encounter; Y93.89 Activity, other specified; Y92.410 Unspecified street and highway as the place of occurrence of the external cause; Y99.8 Other external cause status
CPT/HCPCS: 81025

== ENCOUNTER → 2022-06-26 | Outpatient (CLI) | payer BC ==
[2022-06-27 06:06] LABS: RPR Non Reactive (Non Reactive)
== END | disposition home or self-care (01) ==
LOC: LAB 14:05
PROVIDERS: ATTEND Obstetrics & Gynecology Obstetrics
DX: Z01.419 Encounter for gynecological examination (general) (routine) without abnormal findings (principal)
CPT/HCPCS: 36415; 86592; 86703; 87340

== ENCOUNTER → 2023-02-17 | Outpatient (CLI) | payer BC | END | disposition home or self-care (01) | LOC: LAB 11:34 | PROVIDERS: ATTEND Internal Medicine | DX: Z36.0 Encounter for antenatal screening for chromosomal anomalies (principal); N91.2 Amenorrhea, unspecified | CPT/HCPCS: 36415; 84702 ==

== ENCOUNTER → 2023-07-12 | Outpatient (CLI) | payer BC | END | disposition home or self-care (01) | LOC: LAB 10:58 | PROVIDERS: ATTEND Internal Medicine | DX: Z32.00 Encounter for pregnancy test, result unknown (principal) | CPT/HCPCS: 36415; 81025; 84702 ==

== ENCOUNTER → 2023-07-19 | Outpatient (CLI) | payer BC | END | disposition home or self-care (01) | LOC: LAB 09:18 | PROVIDERS: ATTEND Obstetrics & Gynecology | DX: N91.2 Amenorrhea, unspecified (principal) | CPT/HCPCS: 36415; 81025; 84702 ==

== ENCOUNTER → 2023-07-23 | Outpatient (CLI) | payer BC | END | disposition home or self-care (01) | LOC: LAB 08:40 | PROVIDERS: ATTEND Obstetrics & Gynecology | DX: N91.2 Amenorrhea, unspecified (principal) | CPT/HCPCS: 36415; 81025; 84702 ==

== ENCOUNTER 2023-10-16 22:53 | Emergency (ER) | payer BC, OTHER ==
[~2023-10-16] VITALS: Ht 160 cm; Wt 90.9 kg
[2023-10-17] MEDS: KETOROLAC TROMETH 60MG/2ML VIAL IM ONE (01:38)
[2023-10-17 01:51] VITALS: BP 116/65; PULSE 67; RESP 19; TEMP 98.9; O2SAT 98
== END 2023-10-17 02:00 | disposition home or self-care (01) ==
LOC: ER 22:53
DX: S83.8X1A Sprain of other specified parts of right knee, initial encounter (principal); S83.241A Other tear of medial meniscus, current injury, right knee, initial encounter; Z98.890 Other specified postprocedural states; Z91.040 Latex allergy status; W19.XXXA Unspecified fall, initial encounter; Y93.89 Activity, other specified; Y92.89 Other specified places as the place of occurrence of the external cause; Y99.8 Other external cause status
CPT/HCPCS: 29505; 96372; 99283; J1885

== ENCOUNTER → 2023-11-17 | Outpatient (CLI) | payer BC ==
[2023-11-18 08:06] LABS: RPR Non Reactive (Non Reactive)
[2023-11-18 11:16] LABS: Hepatitis B Surface Antigen Negative (Negative)
[2023-11-18 11:35] LABS: Hepatitis A Ab IgM Negative
[2023-11-18 11:37] LABS: Hepatitis B Core IgM Negative
[2023-11-18 11:52] LABS: Hepatitis C Antibody Negative (Negative)
== END | disposition home or self-care (01) ==
LOC: LAB 09:48
PROVIDERS: ATTEND Obstetrics & Gynecology
DX: Z20.2 Contact with and (suspected) exposure to infections with a predominantly sexual mode of transmission (principal)
CPT/HCPCS: 36415; 80074; 86592; 86703

== ENCOUNTER → 2024-06-27 | Outpatient (CLI) | payer BC ==
[2024-06-27 09:12] LABS: Urine Bacteria FEW /hpf (None Seen); Urine Blood 2+ /uL (Negative); Urine Clarity Clear (Clear); Urine Color Colorless (Yellow); Urine Protein, UAD Negative (Negative); Urine Specific Gravity 1.012 (1.001-1.035); Urine Urobilinogen Normal (Negative); Urine WBC 7 /hpf (0 - 5)
[2024-06-27 09:22] LABS: % Iron Saturation 24.1 % (15-50)
[2024-06-27 09:23] LABS: Alanine Aminotransferase 42 U/L (7-40); Albumin 4.7 g/dL (3.2-4.8); Alkaline Phosphatase 104 U/L (46-116); Anion Gap 6 (5-15); Aspartate Aminotransferase 28 U/L (13-40); BUN/Creatinine Ratio 13.3 (10.0-20.0); Bilirubin, Total 0.6 mg/dL (0.2-1.0); Blood Urea Nitrogen 10 mg/dL (9-23); Calcium 9.9 mg/dL (8.7-10.4); Carbon Dioxide 26 mmol/L (20-31); Chloride 107 mmol/L (98-107); Cholesterol 192 mg/dL (< 200); Glucose 98 mg/dL (74-106); HDL Cholesterol 48 mg/dL (40-59); LDL Cholesterol 118 mg/dL (< 100); Potassium 3.9 mmol/L (3.5-5.1); Sodium 139 mmol/L (136-145); Total Protein 7.9 g/dL (5.7-8.2); Triglycerides 280 mg/dL (< 150)
[2024-06-27 11:15] LABS: Uric Acid 5.7 mg/dL (3.1-7.8)
== END | disposition home or self-care (01) ==
LOC: LAB 08:27
PROVIDERS: ATTEND Family Medicine
DX: E28.2 Polycystic ovarian syndrome (principal); E66.09 Other obesity due to excess calories; Z00.00 Encounter for general adult medical examination without abnormal findings
CPT/HCPCS: 36415; 80053; 80061; 81001; 81025; 82306; 82607; 82670; 83036; 83540; 83550; 84403; 84550; 84702; 85018

== ENCOUNTER 2024-08-22 18:24 | Emergency (ER) | payer BC ==
[~2024-08-22] VITALS: Ht 160 cm; Wt 96.3 kg
[2024-08-22] MEDS ORDERED: METH4PAK PO (20:32)
[2024-08-22] MEDS ORDERED: ACE3T PO (20:32)
--- NOTE | 2024-08-22 20:33 | ED.PDOC ---
Musculoskeletal HPI Comments 39 year old female presents to ER with complaints of right knee pain x 1 day. Patient with PMH of chronic right knee pain x 8 months from a "meniscus tear" states she started experiencing worsening right knee pain today that occurred while she was walking at work. Denies any trauma/falls to cause worsening right knee pain. She rates her current pain a 10/10 to right knee with radiation towards right hip. States she is under the care of orthopedic Dr. Johnson and is currently awaiting for his china decorator to call her back to schedule an arthroscopy of right knee. Denies skin changes, numbness/tingling, shortness of breath, calf pain, fever, body aches or any further symptoms/complaints Chief Complaint: Lower Extremity Time Seen by MD: 18:33 Primary Care Provider: MARK ANTHONY Reviewed Notes: Nurses Notes, Medications, Allergies Allergies: Coded Allergies: Latex (Verified Allergy, Severe, ITCH/HIVES, 09/08/19) Home Meds Active Scripts Acetaminophen W/ Codeine (Tylenol W/Cod #3) 1 Tab Tb, 1 TAB PO Q6HPRN, #10 TAB 0 Refills Prov:JACK PARSONS 08/22/24 Methylprednisolone (Medrol Dosepak) 4 Mg Trevin, 4 MG PO UD, #21 TAB UAD Prov:JACK PARSONS 08/22/24 Information Source: Patient Mode of Arrival: Ambulatory Past Medical History Past Medical History (Other): Chronic right knee pain from "meniscus tear" Surgical History: Cholecystectomy 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 OFFICER History: No Pertinent PENAL OFFICER History [facility] 08-08-24 Family History Family History: Unknown Social History Smoker: Non-Smoker Alcohol: Denies ETOH Use Drugs: Denies Drug Use Lives In: Home Constitutional: denies: chills, diaphoresis, fatigue, fever, malaise, sweats, weakness, others EENTM: denies: blurred vision, double vision, ear bleeding, ear discharge, ear drainage, ear pain, ear ringing, eye pain, eye redness, hearing loss, mouth pain, mouth swelling, nasal discharge, nose bleeding, nose congestion, nose pain, photophobia, tearing, throat pain, throat swelling, voice changes, others Respiratory: denies: cough, hemoptysis, orthopnea, SOB at rest, shortness of breath, SOB with excertion, stridor, wheezing, others Cardiovascular: denies: chest pain, dizzy spells, diaphoresis, Dyspnea on exertion, edema, irregular heart beat, left arm pain, lightheadedness, palpitations, PND, syncope, others Gastrointestinal: denies: abdomen distended, abdominal pain, blood streaked bowels, constipated, diarrhea, dysphagia, difficulty swallowing, hematemesis, melena, nausea, poor appetite, poor fluid intake, rectal bleeding, rectal pain, vomiting, others Genitourinary: denies: abnormal vagina bleeding, burning, dyspareunia, dysuria, flank pain, frequency, hematuria, incontinence, pain, , vagina discharge, urgency, others Neurological: denies: dizziness, fainting, headache, left sided numbness, left sided weakness, numbness, paresthesia, pre-existing deficit, right sided numbness, right sided weakness, seizure, speech problems, tingling, tremors, weakness, others Musculoskeletal: reports: others (As stated in HPI) Integumetry: denies: bruises, change in color, change in hair/nails, dryness, laceration, lesions, lumps, rash, wounds, others Allergic/Immunocompromised: denies: Difficulty Healing, Frequent Infections, Hives, Itching, others Hematologic/Lymphatic: denies: anemia, blood clots, easy bleeding, easy bruising, swollen glands, others Endocrine: denies: excessive hunger, excessive sweating, excessive thirst, excessive urination, flushing, intolerance to cold, intolerance to heat, unexplained weight gain, unexplained weight loss, others Psychiatric: denies: anxiety, bipolar disorder, depression, hopeless, panic disorder, schizophrenia, sleepless, suicidal, others Physical Exam General Appearance: No Apparent Distress, Obese HEENT: PERRL/EOMI Neck: Full Range of Motion, Non-Tender, Normal Respiratory: Chest Non-Tender, Lungs Clear, No Accessory Muscle Use, No Respiratory Distress, Normal Breath Sounds Cardiovascular: No Murmur, No Gallop, Regular Rate/Rhythm Breast Exam: Deferred Gastrointestinal: NOT DONE Genitalia: Deferred Pelvic: Deferred Rectal: Deferred Extremities: No calf tenderness, Normal capillary refill, Normal range of motion Musculoskeletal : Extremity Location: Knee (TTP/mild swelling to right anterior knee noted. Positive anterior drawer test right knee. Negative Drake's test right knee. No further skin changes noted. No TTP to right hip noted. Pulses intact. Gait slow due to pain localized to right anterior knee) Neurologic: Alert, supervisor salvage II-XII nml as Tested, No Motor Deficits, Normal Affect, Normal Mood, No Sensory Deficits Cerebellar Function: Normal Reflexes: Normal Skin: Dry, Normal Color, Warm Peripheral Pulses: 2+ femoral (R), 2+ femoral (L), 2+ dorsalis pedis (R), 2+ dorsalis pedis (L), 2+ Radial (R), 2+ Radial (L), 2+ Brachial (R), 2+ Brachial (L) Lymphatic: No Adenopathy Was a procedure done? Was a procedure done?: No Sedation Sedation?: No Differential Diagnosis EXT Differential Diagnosis: Deep Vein Thrombosis, Fracture, Dislocation, Neurovascular injury X-Ray, Labs, Meds, VS Vital Signs Date Time Temp Pulse Resp B/P (MAP) Pulse Ox O2 Delivery O2 Flow Rate FiO2 08/22/24 20:44 104 22 138/80 08/22/24 20:23 97.2 102 20 137/78 (97) 100 97.2 08/22/24 20:23 102 20 100 Ambu-Bag 08/22/24 18:29 97.2 102 20 137/78 (97) 100 Current Medications Medications (Trade) Dose Ordered Sig/Lena Route Start Time Stop Time Status Last Admin Morphine Sulfate 2 mg ONCE ONCE IM 08/22/24 20:15 08/22/24 20:16 DC 08/22/24 20:44 Ondansetron HCl (Zofran Po) 4 mg ONCE ONCE PO 08/22/24 20:15 08/22/24 20:16 DC 08/22/24 20:44 PATIENT: ERNST CARD GACCT: [id number]: [id number] : 1985 LOC: ER ROOM / BED: / AGE / SEX: 39 / F ADM STATUS: REG ER SERVICE 08 ORDERING PHYSICIAN: JACK PARSONS PROCEDURE(s): RLDVT - RT Lower DVT REASON: right leg pain ORDER NUMBER(s): [id number], ACCESSION NUMBER(s): [id number] Right lower extremity venous duplex Clinical History: right leg pain Comparison: None Technique: Duplex Doppler evaluation of the deep venous system of the right lower extremity from the common femoral vein to the popliteal vein including color Doppler and spectral/pulsed waveform analysis was performed. Findings: The common femoral vein demonstrates appropriate compressibility and waveform variability. There is compressibility/patency of the great saphenous vein at the proximal thigh. The femoral vein demonstrates appropriate compressibility and waveform variability. The deep femoral vein demonstrates appropriate compressibility and waveform variability. The popliteal vein demonstrates appropriate compressibility and waveform variability. There is normal compressibility at the tibioperoneal trunk. Impression: No right femoropopliteal venous thrombosis. If clinical concern/symptoms persist or worsen, short-interval follow-up study is suggested. ATED BY: REJI HENRIQUEZ DO DICTATED DATE/TIME: 08/22/242044 SIGNED BY: REJI HENRIQUEZ DO SIGNED DATE/TIME: 08/22/242044 CC: Right lower DVT ultrasound reviewed Patient neurovascularly intact and reported improvement in symptoms prior to discharge Morphine 2 mg IM ordered Zofran 4 mg p.o. ordered Previous charts were reviewed Patient states that she has a right knee immobilizer and crutches with her at home. Was advised on use at all times Advised on rest/no strenuous activity, elevation and alternate ice on/off as needed for pain Advised to follow up with PCP and orthopedic Dr. Johnson in 1-2 days Patient verbalized understanding and agreeable with current plan of care Advised to return to ER immediately if symptoms worsen Time of 1ST Reevaluation: 19:54 Reevaluation 1ST: N/A Patient Education/Counseling: Diagnosis, Treatment, Prognosis, Need For Follow Up Family Education/Counseling: No Family Present Departure 1 Departure Time of Disposition: 20:12 Impression: Primary Impression: Right knee sprain Qualified Codes: S83.91XA - Sprain of unspecified site of right knee, initial encounter Disposition: HOME / SELF CARE / HOMELESS Condition: Stable e-Prescriptions Acetaminophen W/ Codeine (Tylenol W/Cod #3) 1 Tab Tb 1 TAB PO Q6HPRN, #10 TAB 0 Refills Prov: JACK PARSONS 08/22/24 Methylprednisolone (Medrol Dosepak) 4 Mg Trevin 4 MG PO UD, #21 TAB UAD Prov: JACK PARSONS 08/22/24 Discharged With: Friend Critical Care Note Critical Care Time?: No Stability Stability form required: No Heart Score Heart Score: Heart Score Response (Comments) Value History N/A 0 EKG N/A 0 Age N/A 0 Risk Factors N/A 0 Troponin N/A 0 Total 0 JACK PARSONS Aug 22, 2024 20:33
[2024-08-22] MEDS: ONDANSETRON ODT 4 MG TAB PO ONE (20:44)
[2024-08-22] MEDS: MORPHINE SULFATE INJ 2 MG/ml SYRG IM ONE (20:44)
--- NOTE | 2024-08-22 20:47 | DVH ---
Right lower extremity venous duplex Clinical History: right leg pain Comparison: None Technique: Duplex Doppler evaluation of the deep venous system of the right lower extremity from the common femo ral vein to the popliteal vein including color Doppler and spectral/pulsed waveform analysis was perf ormed. Findings: The common femoral vein demonstrates appropriate compressibility and waveform variability. There is compressibility/patency of the great saphenous vein at the proximal thigh. The femoral vein demonstrates appropriate compressibility and waveform variability. The deep femoral vein demonstrates appropriate compressibility and waveform variability. The popliteal vein demonstrates appropriate compressibility and waveform variability. There is normal compressibility at the tibioperoneal trunk. Impression: No right femoropopliteal venous thrombosis. If clinical concern/symptoms persist or worsen, short-interval follow-up study is suggested.
[2024-08-22 20:50] VITALS: TEMP 98.6; O2SAT 100
[2024-08-22 21:33] VITALS: BP 115/70; PULSE 68; RESP 16
== END 2024-08-22 21:33 | disposition home or self-care (01) ==
LOC: ER 18:24
DX: S83.8X1A Sprain of other specified parts of right knee, initial encounter (principal); Z88.8 Allergy status to other drugs, medicaments and biological substances; Z90.49 Acquired absence of other specified parts of digestive tract; X58.XXXA Exposure to other specified factors, initial encounter; Y93.9 Activity, unspecified; Y92.89 Other specified places as the place of occurrence of the external cause; Y99.8 Other external cause status
CPT/HCPCS: 29505; 93971; 96372; 99285; J2270; Q0162

== ENCOUNTER → 2024-09-07 | Outpatient (CLI) | payer BC ==
[~2024-09-07] MED LIST changes: +ACE3T PO; -BUPIVACAINE 0.25% INJ 50ML VIAL ONE; -DexAMETHasone SOD PHOS 10MG/1ML VIAL INJ ONE; -HYDROmorphone HCL 2 MG/ML VL IV PRN; -KETOROLAC TROMETH 30 MG/ML 1ML VIAL IV ONE; -LABETALOL HCL 5 MG/ML 4ML SYRINGE IV PRN; -LIDOCAINE 1% HCL (LOCAL ANESTH.) INJ 20ML MDV ONE; -MEPERIDINE HCL (25 MG/ML) 1ML VIAL ONE; +METH4PAK PO; -MIDAZOLAM HCL 1MG/1ML-2 ML VIAL IV PRN; -MIDAZOLAM HCL 1MG/1ML-2 ML VIAL ONE; -MORPHINE SULFATE 4 MG/ML SYR/VIAL IV PRN; -ONDANSETRON HCL 4 MG/2 ML VIAL IV PRN; -PROPOFOL 10 MG/ML 20 ML IV ONE; -ceFAZolin 1GM/50ML 50 ML IV ONE; -ePHEDrine SULFATE 50 MG/ML AMP IV PRN; -fentaNYL CITRATE 100 MCG/2 ML VL ONE
== END | disposition home or self-care (01) ==
LOC: LAB 15:59
PROVIDERS: ATTEND Nurse Practitioner Family
DX: Z32.01 Encounter for pregnancy test, result positive (principal)
CPT/HCPCS: 36415; 81025; 84702

== ENCOUNTER 2024-09-16 14:51 | Emergency (ER) | payer BC ==
[~2024-09-16] VITALS: Ht 160 cm; Wt 94.0 kg
[2024-09-16 15:41] LABS: Urine Bacteria None Seen /hpf (None Seen)
[2024-09-16 15:56] LABS: Basophils # (auto) 0.1 10 ^3/uL (0-0.2); Basophils % (auto) 0.9 % (0.0-2.0); Eosinophils # (auto) 0.1 10 ^3/uL (0-0.8); Eosinophils % (auto) 1.4 % (0.0-7.0); Hematocrit 41.8 % (36.0-46.0); Hemoglobin 14.2 g/dL (12.2-16.2); Lymphocytes # (auto) 1.7 10 ^3/uL (0.4-5.4); Lymphocytes % (auto) 20.8 % (10.0-50.0); Mean Corpuscular Volume 91.3 fL (80.0-100.0); Monocytes # (auto) 0.5 10 ^3/uL (0-1.3); Monocytes % (auto) 6.7 % (0.0-12.0); Neutrophils # (auto) 5.7 10 ^3/uL (1.6-8.6); Neutrophils % (auto) 70.2 % (37.0-80.0); Platelet Count (auto) 297 10^3/uL (140-450); Red Blood Cells 4.57 10^6/uL (4.0-5.20); Red Cell Distribution Width 13.1 % (11.8-14.3); White Blood Cell 8.1 10^3/uL (4.4-10.8)
--- NOTE | 2024-09-16 15:57 | ED.PDOC ---
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 Pt states she is currently , , 1 miscarriage, states she has been having vaginal bleeding with associated cramps and passing blood clots since earlier this AM. Pt states she had last menstrual period Aug 06, 2024 and states she took test 1 week prior which came back positive. Pt states today, she has gone through more than 10 pads. Pt otherwise denies nausea, vomiting, fever,cough or chills. . Pt otherwise has stable vitals in the ED. Pt otherwise denies any other symptoms at this time Chief Complaint: Vaginal Bleed Time Seen by MD: 15:55 Reviewed Notes: Nurses Notes Allergies: Coded Allergies: Latex (Verified Allergy, Severe, ITCH/HIVES, 09/08/19) Home Meds Active Scripts Cephalexin (KEFLEX CAPSULE) 250 Mg Cp, 250 MG PO QID for 5 Days, #20 BOTTLE Prov:ALEXIS MENDES MD 09/16/24 Acetaminophen W/ Codeine (Tylenol W/Cod #3) 1 Tab Tb, 1 TAB PO Q6HPRN, #10 TAB 0 Refills Prov:JACK PARSONS 08/22/24 Methylprednisolone (Medrol Dosepak) 4 Mg Trevin, 4 MG PO UD, #21 TAB UAD Prov:JACK PARSONS 08/22/24 Information Source: Patient Mode of Arrival: Ambulatory Past Medical History Surgical History: Cholecystectomy 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 Family History Family History: Unknown Social History Smoker: Non-Smoker Alcohol: Denies ETOH Use Drugs: Denies Drug Use Lives In: Home Constitutional: denies: chills, diaphoresis, fatigue, fever, malaise, sweats, weakness, others EENTM: denies: blurred vision, double vision, ear bleeding, ear discharge, ear drainage, ear pain, ear ringing, eye pain, eye redness, hearing loss, mouth pain, mouth swelling, nasal discharge, nose bleeding, nose congestion, nose pain, photophobia, tearing, throat pain, throat swelling, voice changes, others Respiratory: denies: cough, hemoptysis, orthopnea, SOB at rest, shortness of breath, SOB with excertion, stridor, wheezing, others Cardiovascular: denies: chest pain, dizzy spells, diaphoresis, Dyspnea on exertion, edema, irregular heart beat, left arm pain, lightheadedness, palpitations, PND, syncope, others Gastrointestinal: denies: abdomen distended, abdominal pain, blood streaked bowels, constipated, diarrhea, dysphagia, difficulty swallowing, hematemesis, melena, nausea, poor appetite, poor fluid intake, rectal bleeding, rectal pain, vomiting, others Genitourinary: reports: abnormal vagina bleeding; denies: burning, dyspareunia, dysuria, flank pain, frequency, hematuria, incontinence, pain, , vagina discharge, urgency, others Neurological: denies: dizziness, fainting, headache, left sided numbness, left sided weakness, numbness, paresthesia, pre-existing deficit, right sided numbness, right sided weakness, seizure, speech problems, tingling, tremors, weakness, others Musculoskeletal: denies: back pain, gout, joint pain, joint swelling, muscle pain, muscle stiffness, neck pain, others Integumetry: denies: bruises, change in color, change in hair/nails, dryness, laceration, lesions, lumps, rash, wounds, others Allergic/Immunocompromised: denies: Difficulty Healing, Frequent Infections, Hives, Itching, others Hematologic/Lymphatic: denies: anemia, blood clots, easy bleeding, easy bruising, swollen glands, others Endocrine: denies: excessive hunger, excessive sweating, excessive thirst, excessive urination, flushing, intolerance to cold, intolerance to heat, unexplained weight gain, unexplained weight loss, others Psychiatric: denies: anxiety, bipolar disorder, depression, hopeless, panic disorder, schizophrenia, sleepless, suicidal, others All Other Systems: Reviewed and Negative Physical Exam General Appearance: Moderate Distress HEENT: Normal ENT Inspection, Pharynx Normal, TMs Normal Neck: Full Range of Motion, Non-Tender, Normal, Normal Inspection Respiratory: Chest Non-Tender, Lungs Clear, No Accessory Muscle Use, No Respiratory Distress, Normal Breath Sounds Cardiovascular: No Edema, No JVD, No Murmur, No Gallop, Normal Peripheral Pulses, Regular Rate/Rhythm Breast Exam: Deferred Gastrointestinal: No Organomegaly, Non Tender, No Pulsatile Mass, Normal Bowel Sounds, Soft Genitalia: Deferred Pelvic: Deferred Rectal: Deferred Extremities: No calf tenderness, Normal capillary refill, Normal inspection, Normal range of motion, Non-tender, No pedal edema Musculoskeletal : Apperance: Normal Neurologic: 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 Was a procedure done?: No Differential Diagnosis (SHEARING MACHINE OPERATOR) Vaginal Bleeding: - Complete, - Incomplete, - Inevitable, - Missed, - Threatened, Ectopic , UTI, Vaginitis X-Ray, Labs, Meds, VS Vital Signs Date Time Temp Pulse Resp B/P (MAP) Pulse Ox O2 Delivery O2 Flow Rate FiO2 09/16/24 18:32 Room Air* 0 21 09/16/24 18:29 98.2 105 14 127/68 (87) 97 98.2 09/16/24 15:05 98.3 100 16 113/77 (89) 100 Lab Test 09/16/24 15:15 09/16/24 15:01 Range/Units White Blood Count 8.1 4.4-10.8 10^3/uL Red Blood Count 4.57 4.0-5.20 10^6/uL Hemoglobin 14.2 12.2-16.2 g/dL Hematocrit 41.8 36.0-46.0 % Mean Corpuscular Volume 91.3 80.0-100.0 fL Mean Corpuscular Hemoglobin 31.0 28.0-32.0 pg Mean Corpuscular Hemoglobin Concent 34.0 32.0-36.0 g/dL Red Cell Distribution Width 13.1 11.8-14.3 % Platelet Count 297 140-450 10^3/uL Mean Platelet Volume 9.0 6.9-10.8 fL Neutrophils (%) (Auto) 70.2 37.0-80.0 % Lymphocytes (%) (Auto) 20.8 10.0-50.0 % Monocytes (%) (Auto) 6.7 0.0-12.0 % Eosinophils (%) (Auto) 1.4 0.0-7.0 % Basophils (%) (Auto) 0.9 0.0-2.0 % Neutrophils # (Auto) 5.7 1.6-8.6 10 ^3/uL Lymphocytes # (Auto) 1.7 0.4-5.4 10 ^3/uL Monocytes # (Auto) 0.5 0-1.3 10 ^3/uL Eosinophils # (Auto) 0.1 0-0.8 10 ^3/uL Basophils # (Auto) 0.1 0-0.2 10 ^3/uL Nucleated Red Blood Cells 0.0 % Sodium Level 141 136-145 mmol/L Potassium Level 3.4 L 3.5-5.1 mmol/L Chloride Level 105 98-107 mmol/L Carbon Dioxide Level 26 20-31 mmol/L Anion Gap 10 5-15 Blood Urea Nitrogen 8 L 9-23 mg/dL Creatinine 0.79 0.550-1.02 mg/dL Glomerular Filtration Rate Calc 99 >90 mL/min BUN/Creatinine Ratio 10.1 10.0-20.0 Serum Glucose 88 74-106 mg/dL Calcium Level 10.3 8.7-10.4 mg/dL Beta HCG, Quantitative 651.4 H 1.5-4.2 mIU/mL Urine Color Colorless Yellow Urine Clarity Turbid H Clear Urine pH 6.0 5.0-9.0 Urine Specific [place] 1.020 1.001-1.035 Urine Protein Trace H Negative Urine Ketones Negative Negative Urine Blood 3+ H Negative /uL Urine Nitrite Negative Negative Urine Bilirubin Negative Negative Urine Urobilinogen Normal Negative mg/dL Urine Leukocyte Esterase 2+ Negative /uL Urine RBC 1672 0 - 4 /hpf Urine WBC 17 0 - 5 /hpf Urine Squamous Epithelial Cells None seen <5 /hpf Urine Bacteria None seen None Seen /hpf Urine Glucose Normal Normal mg/dL Procedure: US OB ULTRASOUND COMP LESS 14WKS 09/16/2024 04:29 PM IMPRESSION: 1. No sonographic evidence for an acute intrapelvic process. No intrauterine p regnancy. No adnexal lesion or free pelvic fluid. Patient alert. Complaining of vaginal bleeding. UA shows UTI. Vitals stable. Beta hCG elevated from last time she was here. Early . Ultrasound reviewed does not show any . Possibly early . Spoke with OBGYN. WBC within normal limits. Hemoglobin within normal limits. Was given prescription of Keflex antibiotic. Was told to follow up with her OBGYN. Was told to follow up with her primary care physician. Was told to come back if there is any problem. Time of 1ST Reevaluation: 16:25 Reevaluation 1ST: Unchanged Patient Education/Counseling: Diagnosis, Treatment Family Education/Counseling: No Family Present Departure 1 Departure Time of Disposition: 17:12 Impression: Primary Impression: Vaginal bleeding affecting early Additional Impression: UTI (urinary tract infection) Qualified Codes: N30.01 - Acute cystitis with hematuria Disposition: HOME / SELF CARE / HOMELESS Condition: Good e-Prescriptions Cephalexin (KEFLEX CAPSULE) 250 Mg Cp 250 MG PO QID for 5 Days, #20 BOTTLE Prov: ALEXIS MENDES MD 09/16/24 Discharged With: Self Critical Care Note Critical Care Time?: No Stability Stability form required: No Heart Score Heart Score: Heart Score Response (Comments) Value History N/A 0 EKG N/A 0 Age N/A 0 Risk Factors N/A 0 Troponin N/A 0 Total 0 I personally scribed for ALEXIS MENDES MD ([email or web address]) on 09/16/24 at 15:57. Electronically submitted by Anu Mcnamara ([email or web address]). I personally scribed for ALEXIS MENDES MD ([email or web address]) on 09/16/24 at 18:55. Electronically submitted by Anu Mcnamara ([email or web address]). ALEXIS MENDES MD Sep 16, 2024 15:57
[2024-09-16 16:03] LABS: Anion Gap 10 (5-15); Carbon Dioxide 26 mmol/L (20-31); Chloride 105 mmol/L (98-107); Sodium 141 mmol/L (136-145)
[2024-09-16 16:04] LABS: Calcium 10.3 mg/dL (8.7-10.4)
[2024-09-16 16:06] LABS: Potassium 3.4 mmol/L (3.5-5.1)
[2024-09-16 16:09] LABS: BUN/Creatinine Ratio 10.1 (10.0-20.0); Glucose 88 mg/dL (74-106)
[2024-09-16 16:16] LABS: Urine Blood 3+ /uL (Negative); Urine Clarity Turbid (Clear); Urine Color Colorless (Yellow); Urine Protein, UAD TRACE (Negative); Urine Squamous Epithelial Cell None Seen /hpf (<5); Urine Urobilinogen Normal (Negative); Urine WBC 17 /hpf (0 - 5)
[2024-09-16 16:19] LABS: Blood Urea Nitrogen 8 mg/dL (9-23)
[2024-09-16] MEDS ORDERED: CEPH250C PO (17:14)
--- NOTE | 2024-09-16 17:30 | DVH ---
Procedure: US OB ULTRASOUND COMP LESS 14WKS 09/16/2024 04:29 PM Indication: bleeding Comparison: None Technique: Real-time grayscale and color images were obtained utilizing transabdominal and transvagin al probes with spectral analysis performed. FINDINGS: UTERUS: Anteverted, measuring 9.6 cm in length. Homogeneous myometrium without a discrete lesion. The endometrial stripe measures 1 cm. No free fluid in the endometrial canal. No intrauterine noted. Several nabothian cysts are seen in the cervix measuring up to 1.5 cm OVARIES: Normal in size bilaterally with normal echotexture and preserved vascular flow. No suspiciou s lesions identified. CUL-DE-SAC: No significant fluid noted. IMPRESSION: 1. No sonographic evidence for an acute intrapelvic process. No intrauterine . No adnexal le elbert or free pelvic fluid.
[2024-09-16 18:29] VITALS: BP 127/68; PULSE 105; RESP 14; TEMP 98.2; O2SAT 97
== END 2024-09-16 18:56 | disposition home or self-care (01) ==
LOC: ER 14:51
DX: O20.9 Hemorrhage in early pregnancy, unspecified (principal); R10.2 Pelvic and perineal pain; O23.41 Unspecified infection of urinary tract in pregnancy, first trimester; N39.0 Urinary tract infection, site not specified; Z90.49 Acquired absence of other specified parts of digestive tract; Z3A.01 Less than 8 weeks gestation of pregnancy; Z79.899 Other long term (current) drug therapy
CPT/HCPCS: 36415; 76801; 76817; 80048; 81001; 84702; 85025

== ENCOUNTER → 2024-09-18 | Outpatient (CLI) | payer BC ==
[~2024-09-18] MED LIST changes: +CEPH250C PO
== END | disposition home or self-care (01) ==
LOC: LAB 10:41
PROVIDERS: ATTEND Obstetrics & Gynecology
DX: O03.9 Complete or unspecified spontaneous abortion without complication (principal)
CPT/HCPCS: 36415; 84702

== ENCOUNTER → 2024-09-20 | Outpatient (CLI) | payer BC ==
[2024-09-20 12:48] LABS: Basophils # (auto) 0.1 10 ^3/uL (0-0.2); Eosinophils # (auto) 0.1 10 ^3/uL (0-0.8); Eosinophils % (auto) 1.5 % (0.0-7.0); Hematocrit 41.2 % (36.0-46.0); Lymphocytes # (auto) 1.9 10 ^3/uL (0.4-5.4); Lymphocytes % (auto) 32.3 % (10.0-50.0); Mean Corpuscular Hemoglobin 30.9 pg (28.0-32.0); Mean Corpuscular Volume 90.8 fL (80.0-100.0); Monocytes # (auto) 0.5 10 ^3/uL (0-1.3); Monocytes % (auto) 8.7 % (0.0-12.0); Neutrophils # (auto) 3.4 10 ^3/uL (1.6-8.6); Neutrophils % (auto) 56.5 % (37.0-80.0); Platelet Count (auto) 263 10^3/uL (140-450); Red Blood Cells 4.54 10^6/uL (4.0-5.20); Red Cell Distribution Width 13.5 % (11.8-14.3)
== END | disposition home or self-care (01) ==
LOC: LAB 12:33
PROVIDERS: ATTEND Obstetrics & Gynecology
DX: D03.9 Melanoma in situ, unspecified (principal)
CPT/HCPCS: 36415; 84702; 85025

== ENCOUNTER 2024-10-02 06:00 | Day surgery (SDC) | payer BC ==
[2024-09-29 08:54] LABS: Urine Bacteria None Seen /hpf (None Seen)
[2024-09-29 09:38] LABS: Basophils # (auto) 0.1 10 ^3/uL (0-0.2); Basophils % (auto) 1.1 % (0.0-2.0); Eosinophils # (auto) 0.1 10 ^3/uL (0-0.8); Eosinophils % (auto) 1.3 % (0.0-7.0); Hematocrit 43.3 % (36.0-46.0); Hemoglobin 14.7 g/dL (12.2-16.2); Lymphocytes # (auto) 1.6 10 ^3/uL (0.4-5.4); Lymphocytes % (auto) 27.4 % (10.0-50.0); Mean Corpuscular Hemoglobin 30.8 pg (28.0-32.0); Mean Corpuscular Hgb Conc. 33.9 g/dL (32.0-36.0); Mean Corpuscular Volume 90.7 fL (80.0-100.0); Monocytes # (auto) 0.4 10 ^3/uL (0-1.3); Monocytes % (auto) 7.7 % (0.0-12.0); Neutrophils # (auto) 3.6 10 ^3/uL (1.6-8.6); Neutrophils % (auto) 62.5 % (37.0-80.0); Platelet Count (auto) 282 10^3/uL (140-450); Red Blood Cells 4.78 10^6/uL (4.0-5.20); Red Cell Distribution Width 13.2 % (11.8-14.3); White Blood Cell 5.7 10^3/uL (4.4-10.8)
[2024-09-29 09:53] LABS: Urine Blood Negative /uL (Negative); Urine Clarity Clear (Clear); Urine Color Light-Yellow (Yellow); Urine Protein, UAD Negative (Negative); Urine Specific Gravity 1.015 (1.001-1.035); Urine Squamous Epithelial Cell FEW /hpf (<5); Urine Urobilinogen Normal (Negative); Urine pH 6.5 (5.0-9.0)
[2024-09-29 10:02] LABS: INR 0.95 (0.9-1.15); Partial Thromboplastin Time 29.5 SEC (24.5-34.5); Prothrombin Time 10.1 sec (9.3-11.8)
[2024-09-29 10:07] LABS: Alanine Aminotransferase 25 U/L (7-40); Alkaline Phosphatase 113 U/L (46-116); Anion Gap 7 (5-15); Aspartate Aminotransferase 16 U/L (13-40); BUN/Creatinine Ratio 11.1 (10.0-20.0); Carbon Dioxide 27 mmol/L (20-31); Chloride 106 mmol/L (98-107); Glucose 88 mg/dL (74-106); Sodium 140 mmol/L (136-145)
[2024-09-29 10:08] LABS: Bilirubin, Total 0.4 mg/dL (0.2-1.0)
[2024-09-29 10:11] LABS: Albumin 5.1 g/dL (3.2-4.8); Blood Urea Nitrogen 9 mg/dL (9-23)
[~2024-10-02] VITALS: Ht 160 cm; Wt 93.0 kg
[~2024-10-02 06:00] MED LIST changes: -ACE3T PO; -CEPH250C PO; -METH4PAK PO; +SEMA2INJ3 SC
[2024-10-02] MEDS ORDERED: PROPOFOL 10 MG/ML 20 ML IV ONE (06:01)
[2024-10-02] MEDS ORDERED: DexAMETHasone SOD PHOS 4 MG/1ML SDV INJ ONE (06:52)
[2024-10-02] MEDS ORDERED: LIDOCAINE W/ EPINEPHRINE 2% INJ 20ML VIAL ONE (06:52)
[2024-10-02] MEDS ORDERED: ROPIVACAINE 0.5% (5MG/ML) 20ML AMPULE IJ ONE (06:53)
[2024-10-02] MEDS ORDERED: BUPIVACAINE HCL 0.25% P/F 10 ML VIAL ONE (07:07)
[2024-10-02] MEDS: ACETAMINOPHEN IV 1000 MG/100ML (10MG/ML) IV ONE (07:15)
[2024-10-02] MEDS: GABAPENTIN 300 MG CAP PO ONE (07:15)
[2024-10-02] MEDS: CELECOXIB 100 MG CAP PO ONE (07:15)
[2024-10-02] MEDS: ceFAZolin 2 GM/D5W100ml 100 ML IV ONE (07:44)
[2024-10-02 08:14] VITALS: PULSE 93; RESP 19; TEMP 97.3; O2SAT 96
[2024-10-02] MEDS ORDERED: FLUMAZENIL 0.1 MG/ML INJ 10ML MDV IV PRN (08:30)
[2024-10-02] MEDS ORDERED: ePHEDrine SULFATE 50 MG/ML AMP IV PRN (08:30)
[2024-10-02] MEDS ORDERED: ONDANSETRON HCL 4 MG/2 ML VIAL IV PRN (08:30)
[2024-10-02] MEDS ORDERED: fentaNYL CITRATE 100 MCG/2 ML VL IV PRN (08:30)
[2024-10-02] MEDS ORDERED: NALOXONE HCL 0.4 MG/ML VIAL IV PRN (08:30)
[2024-10-02] MEDS ORDERED: hydrALAZINE HCL 20 MG/ML VL IV PRN (08:30)
[2024-10-02] MEDS: oxyCODONE HCL 5MG TAB PO PRN (08:40)
--- NOTE | 2024-10-02 08:51 | DVHOP ---
DATE OF SURGERY: 10/02/2024 PREOPERATIVE DIAGNOSES: Right knee meniscal capsular junction tear, right knee synovitis. POSTOPERATIVE DIAGNOSES: Right knee meniscal capsular junction tear, right knee synovitis. PROCEDURES: Right knee arthroscopic medial meniscus repair, right knee arthroscopic synovectomy and debridement, excision of the medial plica and anterior fat pad limited, right knee arthroscopic microfracture lateral femoral condyle. SURGEON: Marc Nick MD. ANESTHESIA: General. COMPLICATIONS: None. CONDITION: Stable to PACU. ASSESSMENT AND PLAN: * The patient will be weightbearing as tolerated on the right lower extremity in extension only, nonweightbearing from 0-90 degrees. * PT, OT. * Out of bed daily. * Follow up in 2 weeks' time. SURGICAL INDICATIONS: The patient is a 39-year-old female who has ongoing pain in the right knee. She has failed conservative measures with physical therapy, activity modification, has ongoing pain with locking, catching and buckling in the right knee. She has failed conservative measures and opts for surgical treatment of the right lower extremity. DESCRIPTION OF PROCEDURE: The patient was seen in the preoperative holding area. The right lower extremity was marked. The patient was brought to the operative suite. General anesthesia was then induced. Timeout was performed according to the hospital protocol. The right lower extremity was prepped and draped in a standard fashion. Once that was then completed, the right lower extremity was prepped and draped. Once that was then done, an anteromedial and anterolateral portal were made under direct visualization. The patellofemoral joint was then visualized. There were no loose bodies noted in the medial and lateral gutter. Once that was then completed with no loose bodies noted in medial and lateral gutters, the patellofemoral joint was then visualized and the cartilage was intact. There were no loose bodies. Once that was then completed, the medial compartment and lateral medial femoral condyle, medial tibial plateau, cartilage grossly intact. The patient has a posterior horn of the medial meniscus that has a meniscal capsular junction separation that was noted by appropriate subluxation of the meniscus that was grasped and followed by an all-inside JuggerStitch suture for stabilization of the medial meniscus ramp. Once that was then completed, the medial meniscus was stable to probing. The ACL, PCL are grossly intact. I did an aggressive synovectomy. We made an excision of the medial plica and anterior fat pad. Once that was then done and completed, the ACL, PCL were intact. Lateral meniscus and the lateral femoral condyle, lateral tibial plateau, cartilage are grossly intact. I microfractured the intercondylar notch and lateral femoral condyle with 3 microfracture picks to help with mesenchymal bleeding for the medial meniscus repair. The portal sites were then closed with 2-0 Monocryl. Sterile dressings were then applied. The patient will be weightbearing as tolerated in extension only, nonweightbearing from 0-90 degrees. PT, OT, out of bed daily. Follow up in 2 weeks' time. MD ROSELINE Proctor/GABRIELLA/GUMARO TID: [id number] RECEIPT: [id number]
[2024-10-02 09:00] VITALS: O2SAT 97
[2024-10-02 10:00] VITALS: O2SAT 96
[2024-10-02] MEDS: HYDROmorphone HCL 2 MG/ML VL/or syr IV PRN (10:00)
[2024-10-02 11:00] VITALS: BP 105/57; PULSE 85; RESP 19; O2SAT 98
== END 2024-10-02 11:02 | disposition home or self-care (01) ==
LOC: SUR 06:00
PROVIDERS: ATTEND Orthopaedic Surgery
DX: S83.241A Other tear of medial meniscus, current injury, right knee, initial encounter (principal); S80.01XA Contusion of right knee, initial encounter; M25.561 Pain in right knee; M67.51 Plica syndrome, right knee; M65.961 Unspecified synovitis and tenosynovitis, right lower leg; E78.00 Pure hypercholesterolemia, unspecified; X58.XXXA Exposure to other specified factors, initial encounter; Y93.89 Activity, other specified; Y92.89 Other specified places as the place of occurrence of the external cause; Y99.8 Other external cause status; Z90.49 Acquired absence of other specified parts of digestive tract; Z98.891 History of uterine scar from previous surgery; Z98.890 Other specified postprocedural states; E66.01 Morbid (severe) obesity due to excess calories; Z68.36 Body mass index [BMI] 36.0-36.9, adult
CPT/HCPCS: 29879; 29882; 36415; 80053; 81001; 84702; 85025; 85610; 85730; C1713; J1171; J2704; J2795; J3490; J0131; J1100